=== PATIENT | female | born 1950 | race Caucasian/White ===

== ENCOUNTER 2017-07-19 08:50 | Inpatient (IN) | payer OTHER, MEDICAID, MEDICARE ==
[~2017-07-19] VITALS: Ht 154.9 cm; Wt 71.5 kg
[~2017-07-19 08:50] MED LIST: AMOX500T PO; IBUP800T23 PO; NYST100024 TOP; OXYB5TAB PO; OXYB5TAB33 PO
[2017-07-19 08:52] VITALS: BP 198/86; PULSE 84; RESP 14; TEMP 98.8; O2SAT 100
[2017-07-19] MEDS ORDERED: URSO1TAB5 PO (09:06)
[2017-07-19] MEDS ORDERED: SODIUM CHLOR 0.9% 1000 ML INJ 1,000 ML IV SCH (09:14)
[2017-07-19] MEDS ORDERED: ONDANSETRON HCL 4 MG/2 ML VIAL IVP ONE (09:15)
[2017-07-19] MEDS ORDERED: SODIUM CHLORIDE 0.9% FLUSH 10 ML FLUSH IV FLUSH PRN ×2 (09:15→12:30)
[2017-07-19] MEDS ORDERED: MORPHINE SULFATE 4 MG/ML INJ IV PUSH ONE (09:15)
[2017-07-19 09:18] VITALS: O2SAT 100
--- NOTE | 2017-07-19 09:28 | PD ---
HPI Chief Complaint: Abdominal Pain Time Seen by Provider: 08:58 Travel History International Travel<30 days: No Contact w/Intl Traveler<30days: No Traveled to known affect area: No History of Present Illness HPI The patient is a 67-year-old female who presents emergency department for abdominal pain. The patient is mostly Slovenian-speaking, does understand some French, and the son translating at bedside per her request. The patient notes 3 days of right upper quadrant abdominal pain that radiates to the back and is associated with nausea and vomiting. The pain is worse with eating as well as inspiration and bending over. The patient had an outpatient ultrasound performed yesterday at [facility], does not know the results. She does note nausea and vomiting postprandial. She denies any previous history of abdominal surgeries. She reports no bowel movement for 2 days, denies any dysuria, frequency, or urgency. She denies any fever, chills, or sweats. Symptoms are moderate, exacerbated by eating, and there are no current alleviating factors. PFSH Past Medical History Medical History: Denies Significant Hx Diminished Hearing: No Tetanus Vaccination: > 5 Years Influenza Vaccination: No Past Surgical History Narrative Surgical Multiple orthopedic surgeries including back, knee, shoulder Social History Alcohol Use: No Tobacco Use: No Substance Use: No Allergies-Medications (Allergen,Severity, Reaction): Coded Allergies: No Known Allergies (Unverified Allergy, Unknown, 07/19/17) Reported Meds & Prescriptions Reported Meds & Active Scripts Active Reported Ursodiol 250 Mg Tab 250 Mg PO DAILY Review of Systems Except as stated in HPI: all other systems reviewed are Neg General / Constitutional: No: Fever Cardiovascular: No: Chest Pain or Discomfort Respiratory: No: Shortness of Breath Gastrointestinal: Positive: Nausea, Vomiting, Abdominal Pain, No: Diarrhea Genitourinary: No: Dysuria Physical Exam Narrative GENERAL: Awake, alert, pleasant 67-year-old female who appears her stated age and is in no acute respiratory distress. SKIN: Focused skin assessment warm/dry. HEAD: Atraumatic. Normocephalic. EYES: No injection or drainage. ENT: No nasal bleeding or discharge. Mucous membranes pink and moist. NECK: Trachea midline. No JVD. CARDIOVASCULAR: Regular rate and rhythm. No murmur appreciated. RESPIRATORY: No accessory muscle use. Clear to auscultation. Breath sounds equal bilaterally. GASTROINTESTINAL: Abdomen soft, tender palpation right upper quadrant. Positive Bose's. Negative McBurney's. Back: No CVA tenderness. MUSCULOSKELETAL: No obvious deformities. No clubbing. No cyanosis. No edema. NEUROLOGICAL: Awake and alert. No obvious cranial nerve deficits. Motor grossly within normal limits. Normal speech. PSYCHIATRIC: Appropriate mood and affect; insight and judgment normal. Data Data Last Documented VS Vital Signs Date Time Temp Pulse Resp B/P (MAP) Pulse Ox O2 Delivery O2 Flow Rate FiO2 07/19/17 09:18 100 Room Air 07/19/17 08:52 98.8 84 14 Orders Orders Complete Blood Count With Diff (07/19/17 09:14) Comprehensive Metabolic Panel (07/19/17 09:14) Lipase (07/19/17 09:14) Iv Access Insert/Monitor (07/19/17 09:14) Ecg Monitoring (07/19/17 09:14) Oximetry (07/19/17 09:14) NPO (07/19/17 09:14) Morphine Inj (Morphine Inj) (07/19/17 09:15) Ondansetron Inj (Zofran Inj) (07/19/17 09:15) Sodium Chlor 0.9% 1000 Ml Inj (Ns 1000 M (07/19/17 09:14) Sodium Chloride 0.9% Flush (Ns Flush) (07/19/17 09:15) Morphine Inj (Morphine Inj) (07/19/17 09:30) Piperacil-Tazo 4.5 Gm Premix (Zosyn 4.5 (07/19/17 09:30) Mri Mrcp W/O Contrast (07/19/17 ) Admit Order (Ed Use Only) (07/19/17 10:33) Labs Laboratory Tests Test 07/19/17 09:05 White Blood Count 23.4 TH/MM3 Red Blood Count 4.91 MIL/MM3 Hemoglobin 13.7 GM/DL Hematocrit 41.1 % Mean Corpuscular Volume 83.7 FL Mean Corpuscular Hemoglobin 28.0 PG Mean Corpuscular Hemoglobin Concent 33.4 % Red Cell Distribution Width 13.7 % Platelet Count 228 TH/MM3 Mean Platelet Volume 9.7 FL Neutrophils (%) (Auto) 86.3 % Lymphocytes (%) (Auto) 5.2 % Monocytes (%) (Auto) 8.4 % Eosinophils (%) (Auto) 0.0 % Basophils (%) (Auto) 0.1 % Neutrophils # (Auto) 20.2 TH/MM3 Lymphocytes # (Auto) 1.2 TH/MM3 Monocytes # (Auto) 2.0 TH/MM3 Eosinophils # (Auto) 0.0 TH/MM3 Basophils # (Auto) 0.0 TH/MM3 CBC Comment DIFF FINAL Differential Comment Blood Urea Nitrogen 15 MG/DL Creatinine 0.94 MG/DL Random Glucose 180 MG/DL Total Protein 7.4 GM/DL Albumin 3.2 GM/DL Calcium Level 9.0 MG/DL Alkaline Phosphatase 121 U/L Aspartate Amino Transf (AST/SGOT) 50 U/L Alanine Aminotransferase (ALT/SGPT) 54 U/L Total Bilirubin 2.3 MG/DL Sodium Level 131 MEQ/L Potassium Level 3.5 MEQ/L Chloride Level 96 MEQ/L Carbon Dioxide Level 24.8 MEQ/L Anion Gap 10 MEQ/L Estimat Glomerular Filtration Rate 59 ML/MIN Lipase 105 U/L MDM Medical Decision Making Medical Screen Exam Complete: Yes Emergency Medical Condition: Yes Medical Record Reviewed: Yes Interpretation(s) Patient had an outpatient ultrasound performed yesterday which revealed abnormal gallbladder with wall thickening, sludge, and cholelithiasis. There is a positive sonographic Bose sign as well. The findings are characteristic of acute cholecystitis. The common bile duct is prominent measuring up to 9 mm with no filling defects identified in the visualized duct. No definite pericholecystic fluid. Gallbladder wall thickening measuring up to 7 mm. Laboratory Tests Test 07/19/17 09:05 White Blood Count 23.4 TH/MM3 Red Blood Count 4.91 MIL/MM3 Hemoglobin 13.7 GM/DL Hematocrit 41.1 % Mean Corpuscular Volume 83.7 FL Mean Corpuscular Hemoglobin 28.0 PG Mean Corpuscular Hemoglobin Concent 33.4 % Red Cell Distribution Width 13.7 % Platelet Count 228 TH/MM3 Mean Platelet Volume 9.7 FL Neutrophils (%) (Auto) 86.3 % Lymphocytes (%) (Auto) 5.2 % Monocytes (%) (Auto) 8.4 % Eosinophils (%) (Auto) 0.0 % Basophils (%) (Auto) 0.1 % Neutrophils # (Auto) 20.2 TH/MM3 Lymphocytes # (Auto) 1.2 TH/MM3 Monocytes # (Auto) 2.0 TH/MM3 Eosinophils # (Auto) 0.0 TH/MM3 Basophils # (Auto) 0.0 TH/MM3 CBC Comment DIFF FINAL Differential Comment Blood Urea Nitrogen 15 MG/DL Creatinine 0.94 MG/DL Random Glucose 180 MG/DL Total Protein 7.4 GM/DL Albumin 3.2 GM/DL Calcium Level 9.0 MG/DL Alkaline Phosphatase 121 U/L Aspartate Amino Transf (AST/SGOT) 50 U/L Alanine Aminotransferase (ALT/SGPT) 54 U/L Total Bilirubin 2.3 MG/DL Sodium Level 131 MEQ/L Potassium Level 3.5 MEQ/L Chloride Level 96 MEQ/L Carbon Dioxide Level 24.8 MEQ/L Anion Gap 10 MEQ/L Estimat Glomerular Filtration Rate 59 ML/MIN Lipase 105 U/L Differential Diagnosis Differential diagnosis includes acute cholecystitis, cholelithiasis, choledocholithiasis, pancreatitis, gastritis, peptic ulcer disease, atypical appendicitis, lower lobe pneumonia. Narrative Course IV was established, labs are drawn and sent, and the patient was placed on cardiac telemetry monitoring and continuous pulse oximetry monitoring. Radiology was able to pull up the report from 12 exam imaging revealing the patient has acute cholecystitis with gallbladder wall measuring 7 mm, multiple echogenic gallstones with posterior shadowing, and a positive sonographic Bose sign. Therefore, the patient was administered Zosyn intravenously. Patient was also administered morphine, Zofran, and IV fluids. The patient will Be kept nothing by mouth. Last oral intake was apple juice at 5 AM with subsequent nausea/vomiting. The patient's white count was elevated at 23.5. Bilirubin is elevated at 2.3, LFTs are in the 50s, bile duct was 9 mm. The patient will need MRCP/ERCP prior to cholecystectomy to evaluate for retained biliary stone. Therefore, the on-call medical team was paged for admission. Sepsis Criteria SIRS Criteria (2 or more): WBC > 77491, < 4000 or > 10% bands Physician Communication Physician Communication The on-call medical service was paged for admission. I discussed the patient with Dr. Bazan who agrees with admission. Diagnosis Primary Impression: Acute cholecystitis Admitting Information Admitting Physician Requests: Admit Condition: Stable Jerry Chapin MD Jul 19, 2017 09:28
[2017-07-19] MEDS ORDERED: PIPERACIL-TAZO 4.5 GM PREMIX 100 ML IV ONE ×2 (09:30→13:45)
[2017-07-19] MEDS ORDERED: MORPHINE SULFATE 2 MG/ML INJ IV PUSH ONE (09:30)
[2017-07-19 09:48] LABS: AUTOMATED NEUTROPHIL # 20.2 TH/MM3 (1.8-7.7); BASOPHIL % 0.1 % (0.0-2.0); HEMATOCRIT 41.1 % (35.0-46.0); HEMOGLOBIN 13.7 GM/DL (11.6-15.3); LYMPH % 5.2 % (9.0-44.0); LYMPHOCYTE # 1.2 TH/MM3 (1.0-4.8); MEAN CELL VOLUME 83.7 FL (80.0-100.0); MEAN CORPUSCULAR HGB CONC 33.4 % (32.0-36.0); MEAN PLATELET VOLUME 9.7 FL (7.0-11.0); MONO % 8.4 % (0.0-8.0); NEUT % 86.3 % (16.0-70.0); PLATELET COUNT 228 TH/MM3 (150-450); RED BLOOD COUNT 4.91 MIL/MM3 (4.00-5.30); RED CELL DISTRIBUTION WIDTH 13.7 % (11.6-17.2); WHITE BLOOD COUNT 23.4 TH/MM3 (4.0-11.0)
[2017-07-19 10:03] LABS: ALBUMIN 3.2 GM/DL (3.4-5.0); AST (GOT) 50 U/L (15-37); BICARBONATE 24.8 MEQ/L (21.0-32.0); BLOOD UREA NITROGEN 15 MG/DL (7-18); CHLORIDE 96 MEQ/L (98-107); CREATININE 0.94 MG/DL (0.50-1.00); GLOMERULAR FILTRATION RATE 59 ML/MIN (>89); GLUCOSE,RANDOM 180 MG/DL (74-106); LIPASE 105 U/L (73-393); SODIUM (NA) 131 MEQ/L (136-145)
[2017-07-19 10:04] LABS: ALT (GPT) 54 U/L (10-53)
[2017-07-19 10:06] LABS: ALKALINE PHOSPHATASE 121 U/L (45-117); TOTAL BILIRUBIN ADULT 2.3 MG/DL (0.2-1.0); TOTAL PROTEIN 7.4 GM/DL (6.4-8.2)
--- NOTE | 2017-07-19 11:34 | RADRPT ---
EXAM DATE/TIME: 07/19/2017 10:55 [facility] COMPARISON: US ABDOMEN - COMPLETE, July 01, 2014, 9:02. INDICATIONS : Abdominal pain. RUQ pain. MEDICAL HISTORY : None. SURGICAL HISTORY : Fusion, lumbar. Total knee replacement, left. ENCOUNTER: Initial ACUITY: 1 day PAIN SCORE: 5/10 LOCATION: Right upper quadrant TECHNIQUE: Multiplanar, multisequence magnetic resonance imaging of the abdomen was performed. High-resolution 3D dataset was utilized to reconstruct maximum-intensity projection (MIP) images. FINDINGS: INTRAHEPATIC BILE DUCTS: Within normal limits. No significant anatomical variant is present. EXTRAHEPATIC BILE DUCTS: The common bile duct measures 9 mm No stone or filling defect is identified. GALLBLADDER: The gallbladder is distended. Gallbladder wall appears thickened. Multiple gallstones are seen. There is edema and inflammatory change surrounding the gallbladder in the right upper quadrant. Fluid is s een around the liver. LIVER: Normal size and signal intensity. No concerning liver lesion is identified on this non-contrast exam. PANCREAS: The main pancreatic duct is normal in size. There is no significant anatomical variant. Signal inte nsity is within normal limits. No mass is visualized on this non-contrast exam. OTHER: The remaining visualized structures demonstrate no acute abnormality on this non-contrast exam. CONCLUSION: Cholelithiasis with a distended gallbladder, thickened gallbladder wall, and surrounding inflammatory change thought to be secondary to cholecystitis. Yonis Shaffer MD on July 19, 2017 at 11:29 Board Certified Radiologist. This report was verified electronically.
[2017-07-19] MEDS ORDERED: LIDOCAINE HCL 1% PF 5 ML SYRINGE OTHER ONE (12:00)
[2017-07-19] MEDS ORDERED: ONDANSETRON HCL 4 MG/2 ML VIAL IV ONE (12:00)
[2017-07-19] MEDS ORDERED: PROPOFOL 200 MG/20 ML AMP IV ONE (12:00)
[2017-07-19] MEDS ORDERED: SODIUM CHLOR 0.9% 1000 ML INJ 1,000 ML IV ONE (12:00)
[2017-07-19] MEDS ORDERED: GLYCOPYRROLATE 1 MG/5 ML SYRINGE IV PUSH ONE (12:00)
[2017-07-19] MEDS ORDERED: PHENYLEPH/NS 1000 MCG/10 ML SYR IV ONE (12:00)
[2017-07-19] MEDS ORDERED: ROCURONIUM INJ 50 MG/5 ML SYRINGE IV PUSH ONE (12:00)
[2017-07-19] MEDS ORDERED: DEXAMETHASONE SOD PHOS 4 MG/ML VIAL IV ONE (12:00)
[2017-07-19] MEDS ORDERED: NEOSTIGMINE 5 MG/5 ML SYRINGE IV PUSH ONE (12:00)
[2017-07-19] MEDS ORDERED: SUCCINYLCHOLINE CHLORIDE 100 MG/5 ML SYRINGE IV PUSH ONE (12:00)
--- NOTE | 2017-07-19 12:09 | HHI.HP ---
[facility] Service Family Medicine Primary Care Physician Unknown Admission Diagnosis acute cholecystitis, rule out choledocholithiasis Diagnoses: International Travel<30 Days: No Contact w/Intl Traveler<30days: No Known Affected Area: No History of Present Illness Patient is a 67-year-old male with past history of gallstones presents today with abdominal pain. Patient has been speaking, communicated with patient via [employer], used quality tech Juan [phone] She reports abdominal pain started approximately 3 days ago, is in her upper stomach, radiates to her back, is described as a crampy stabbing pain, was associated with nausea, vomiting. She notes a past history of gallstones approximately year ago, this feels similar to that time. She states around that time "they removed bile" however states she did not have surgery. She also reports decreased food intake, shortness of breath, chest pain, headache. No pain in her left arm or jaw. She states a few days ago she had a urinalysis which demonstrated blood, bacteria in her urine, burning when she urinates in the past few days. No fever, chills, lightheadedness, dizziness. (Erick Nagel MD R1) Review of Systems Constitutional: COMPLAINS OF: Weight loss, Dizziness, Change in appetite ( decreased), DENIES: Fever, Weight gain (3 pounds), Chills Endocrine: DENIES: Polydipsia, Polyuria Eyes: DENIES: Blurred vision, Diplopia, Eye inflammation, Eye pain, Vision loss , Photosensitivity, Double Vision Ears, nose, mouth, throat: DENIES: Tinnitus, Hearing loss, Nasal discharge, Throat pain, Hoarseness, Ear Pain, Running Nose, Epistaxis Respiratory: DENIES: Apneas, Cough, Wheezing, Hemoptysis, Sputum production, Shortness of breath Cardiovascular: COMPLAINS OF: Chest pain, DENIES: Palpitations, Syncope, Dyspnea on Exertion, Lower Extremity Edema Gastrointestinal: COMPLAINS OF: Abdominal pain, Constipation, Nausea, Vomiting , DENIES: Black stools, Bloody stools, Diarrhea, Difficulty Swallowing Genitourinary: COMPLAINS OF: Hematuria, Dysuria Musculoskeletal: COMPLAINS OF: Back pain, DENIES: Joint pain, Muscle aches, Stiffness, Neck pain Integumentary: DENIES: Pruritus, Rash Hematologic/lymphatic: DENIES: Bruising, Lymphadenopathy Immunologic/allergic: DENIES: Eczema, Urticaria Neurologic: COMPLAINS OF: Abnormal gait (hurts to stand due to abdominal pain) , DENIES: Headache, Localized weakness, Paresthesias, Seizures Psychiatric: COMPLAINS OF: Anxiety, DENIES: Confusion, Depression, Hallucinations (Erick Nagel MD R1) Past Family Social History Past Medical History Osteoporosis Gallstones Past Surgical History No surgeries (Erick Nagel MD R1) Allergies: Coded Allergies: No Known Allergies (Unverified Allergy, Unknown, 07/19/17) Family History Father: at 80 from "malpractice," hernia Mother: Diabetes, ope heart surgery Son: healthy Social History EtOH: occasional Tobacco: never Drugs: none (Erick Nagel MD R1) Physical Exam Vital Signs Vital Signs Date Time Temp Pulse Resp B/P (MAP) Pulse Ox O2 Delivery O2 Flow Rate FiO2 07/19/17 09:18 100 Room Air 07/19/17 08:52 98.8 84 14 198/86 (123) 100 Physical Exam GENERAL: This is a well-nourished, well-developed patient, curled up in bed due to pain SKIN: No rashes, ecchymoses or lesions. Cool and dry. HEAD: Atraumatic. Normocephalic. No temporal or scalp tenderness. EYES: Pupils equal round and reactive. Extraocular motions intact. No scleral icterus. No injection or drainage. ENT: Nose without bleeding, purulent drainage or septal hematoma. Throat without erythema, tonsillar hypertrophy or exudate. Uvula midline. Airway patent. NECK: Trachea midline. No JVD or lymphadenopathy. Supple, nontender, no meningeal signs. CARDIOVASCULAR: Regular rate and rhythm without murmurs, gallops, or rubs. RESPIRATORY: Clear to auscultation. Breath sounds equal bilaterally. No wheezes , rales, or rhonchi. GASTROINTESTINAL: Abdomen soft, tender to palpation. Positive Bose sign. Bowel sounds present, no rebound. No hepato-splenomegaly, or palpable masses. No guarding. MUSCULOSKELETAL: Extremities without clubbing, cyanosis, or edema. No joint tenderness, effusion, or edema noted. No calf tenderness. Negative Homans sign bilaterally. NEUROLOGICAL: Awake and alert. Motor and sensory grossly within normal limits. Normal speech. Laboratory Laboratory Tests Test 07/19/17 09:05 White Blood Count 23.4 Red Blood Count 4.91 Hemoglobin 13.7 Hematocrit 41.1 Mean Corpuscular Volume 83.7 Mean Corpuscular Hemoglobin 28.0 Mean Corpuscular Hemoglobin Concent 33.4 Red Cell Distribution Width 13.7 Platelet Count 228 Mean Platelet Volume 9.7 Neutrophils (%) (Auto) 86.3 Lymphocytes (%) (Auto) 5.2 Monocytes (%) (Auto) 8.4 Eosinophils (%) (Auto) 0.0 Basophils (%) (Auto) 0.1 Neutrophils # (Auto) 20.2 Lymphocytes # (Auto) 1.2 Monocytes # (Auto) 2.0 Eosinophils # (Auto) 0.0 Basophils # (Auto) 0.0 CBC Comment DIFF FINAL Differential Comment Blood Urea Nitrogen 15 Creatinine 0.94 Random Glucose 180 Total Protein 7.4 Albumin 3.2 Calcium Level 9.0 Alkaline Phosphatase 121 Aspartate Amino Transf (AST/SGOT) 50 Alanine Aminotransferase (ALT/SGPT) 54 Total Bilirubin 2.3 Sodium Level 131 Potassium Level 3.5 Chloride Level 96 Carbon Dioxide Level 24.8 Anion Gap 10 Estimat Glomerular Filtration Rate 59 Lipase 105 (Erick Nagel MD R1) Result Diagram: 07/19/17 0905 07/19/17 0905 Imaging Last 24 hours Impressions Chest X-Ray 07/19/17 1218 Signed Impressions: Service Date/Time: Wednesday, July 19, 2017 12:25 - CONCLUSION: Mild suspected atelectasis or consolidation at the right base. Yonis Shaffer MD Cholangiopancreatography MRI 07/19/17 0000 Signed Impressions: Service Date/Time: Wednesday, July 19, 2017 10:55 - CONCLUSION: Cholelithiasis with a distended gallbladder, thickened gallbladder wall, and surrounding inflammatory change thought to be secondary to cholecystitis. Yonis Shaffer MD (Erick Nagel MD R1) Caprini VTE Risk Assessment Caprini VTE Risk Assessment: Mod/High Risk (score >= 2) Caprini Risk Assessment Model Point Value = 1 Point Value = 2 Point Value = 3 Point Value = 5 Age 41-60 Minor surgery BMI > 25 kg/m2 Swollen legs Varicose veins or History of unexplained or recurrent spontaneous Oral contraceptives or hormone replacement Sepsis (< 1 month) Serious lung disease, including pneumonia (< 1 month) Abnormal pulmonary function Acute myocardial infarction Congestive heart failure (< 1 month) History of inflammatory bowel disease Medical patient at bed rest Age 61-74 Arthroscopic surgery Major open surgery (> 45 min) Laparoscopic surgery (> 45 min) Malignancy Confined to bed (> 72 hours) Immobilizing plaster cast Central venous access Age >= 75 History of VTE Family history of VTE Factor V Leiden Prothrombin [id number] Lupus anticoagulant Anticardiolipin antibodies Elevated serum homocysteine Heparin-induced thrombocytopenia Other congenital or acquired thrombophilia Stroke (< 1 month) Elective arthroplasty Hip, pelvis, or leg fracture Acute spinal cord injury (< 1 month) Prophylaxis Regimen Total Risk Factor Score Risk Level Prophylaxis Regimen 0-1 Low Early ambulation 2 Moderate Order ONE of the following: *Sequential Compression Device (SCD) *Heparin 5000 units SQ BID 3-4 Higher Order ONE of the following medications: *Heparin 5000 units SQ TID *Enoxaparin/Lovenox 40 mg SQ daily (WT < 150 kg, CrCl > 30 mL/min) *Enoxaparin/Lovenox 30 mg SQ daily (WT < 150 kg, CrCl > 10-29 mL/min) *Enoxaparin/Lovenox 30 mg SQ BID (WT < 150 kg, CrCl > 30 mL/min) AND/OR *Sequential Compression Device (SCD) 5 or more Highest Order ONE of the following medications: *Heparin 5000 units SQ TID (Preferred with Epidurals) *Enoxaparin/Lovenox 40 mg SQ daily (WT < 150 kg, CrCl > 30 mL/min) *Enoxaparin/Lovenox 30 mg SQ daily (WT < 150 kg, CrCl > 10-29 mL/min) *Enoxaparin/Lovenox 30 mg SQ BID (WT < 150 kg, CrCl > 30 mL/min) AND *Sequential Compression Device (SCD) (Erick Nagel MD R1) Assessment and Plan Assessment and Plan 67-year-old female with history of gallstones presents with calculus cholecystitis. Patient also complains of recent hematuria and dysuria. Possible UTI. Patient also complains of chest pain, shortness of breath, rule out ACS. (Erick Nagel MD R1) Problem List: (1) Calculus of gallbladder with cholecystitis ICD Codes: K80.10 - Calculus of gallbladder with chronic cholecystitis without obstruction Plan: Patient with history of cholelithiasis, currently with abdominal pain, Bose's sign, cholelithiasis with inflammatory changes on MRCP. Currently has cholecystitis. -Surgery consulted, appreciate recommendations -Morphine 2 mg when necessary every 4 hours -MRCP as stated above -Nothing by mouth due to likely surgery (2) Chest pain ICD Codes: R07.9 - Chest pain, unspecified Plan: Patient states that she has chest pain, shortness of breath, no left arm or jaw pain. Pain possibly related to cholecystitis. -Follow up EKG -Follow-up chest x-ray -Trend troponins (3) UTI (urinary tract infection) ICD Codes: N39.0 - Urinary tract infection, site not specified Plan: Patient reports recent dysuria and hematuria, states she may have recently had a UA positive for these. Has not been on antibiotics. -Follow up UA -Antibiotics pending UA results (4) Hypertension ICD Codes: I10 - Essential (primary) hypertension Plan: Patient presented on admission with a blood pressure 198/86, repeat blood pressure 1626/76. Denies past history of hypertension. Likely secondary to pain from cholecystitis. -Monitor blood pressure -Labetalol 10 mg as needed every 6 hours for systolic> 160 or diastolic> 90 -Pain control as above (5) FEN Plan: Fluids: -Maintenance fluids 110 mL/h Electrolytes -Monitor replete as needed Nutrition -Nothing by mouth, likely surgery soon (Erick Nagel MD R1) Problem List: (1) Calculus of gallbladder with cholecystitis ICD Codes: K80.10 - Calculus of gallbladder with chronic cholecystitis without obstruction Plan: Patient with history of cholelithiasis, currently with abdominal pain, Bose's sign, cholelithiasis with inflammatory changes on MRCP. Currently has cholecystitis. -Surgery consulted, appreciate recommendations -Morphine 2 mg when necessary every 4 hours -MRCP as stated above -Nothing by mouth due to likely surgery (2) Chest pain ICD Codes: R07.9 - Chest pain, unspecified Plan: Patient states that she has chest pain, shortness of breath, no left arm or jaw pain. Pain possibly related to cholecystitis. -Follow up EKG -Follow-up chest x-ray -Trend troponins (3) UTI (urinary tract infection) ICD Codes: N39.0 - Urinary tract infection, site not specified Plan: Patient reports recent dysuria and hematuria, states she may have recently had a UA positive for these. Has not been on antibiotics. -Follow up UA -Antibiotics pending UA results (4) Hypertension ICD Codes: I10 - Essential (primary) hypertension Plan: Patient presented on admission with a blood pressure 198/86, repeat blood pressure 1626/76. Denies past history of hypertension. Likely secondary to pain from cholecystitis. -Monitor blood pressure -Labetalol 10 mg as needed every 6 hours for systolic> 160 or diastolic> 90 -Pain control as above (5) FEN Plan: Fluids: -Maintenance fluids 110 mL/h Electrolytes -Monitor replete as needed Nutrition -Nothing by mouth, likely surgery soon See the residents documentation for details. I saw and evaluated the patient regarding the conley portions of this evaluation and agree with the residents findings and plans as written. I have reviewed the patients past medical/surgical and social histories and updated as appropriate. Parts of this note were created using [employer] voice recognition software program. While efforts were made to correct any mistakes made by this software, some mistakes, errors, and omissions may remain in the final note that were not caught when the note was originally created. Plan of care was discussed and agreed upon with the patient as specifically documented in the above note. An opportunity to ask questions with explanation was provided. Patient voiced understanding on all information reviewed and discussed. (Carlos A Valenzuela MD) Physician Certification 2 Midnight Certification Type: Admission for Inpatient Services Order for Inpatient Services The services are ordered in accordance with Medicare regulations or non- Medicare payer requirements, as applicable. In the case of services not specified as inpatient-only, they are appropriately provided as inpatient services in accordance with the 2-midnight benchmark. Estimated LOS (days): 2 2 days is the estimated time the patient will need to remain in the hospital, assuming treatment plan goals are met and no additional complications. Post-Hospital Plan: Home (Erick Nagel MD R1) Erick Nagel MD R1 Jul 19, 2017 12:09 Carlos A Valenzuela MD Jul 20, 2017 12:58
[2017-07-19] MEDS ORDERED: LABETALOL HCL 100 MG/20 ML VIAL IV PUSH PRN (12:15)
[2017-07-19] MEDS: SODIUM CHLOR 0.9% 1000 ML INJ 1,000 ML IV SCH ×2 (12:18→19:19)
[2017-07-19] MEDS ORDERED: MAGNESIUM HYDROXIDE SUSP 30 ML CUP PO PRN (12:30)
[2017-07-19] MEDS ORDERED: LACTULOSE SYRUP 20 GM/30 ML CUP PO PRN (12:30)
[2017-07-19] MEDS ORDERED: ACETAMINOPHEN 325 MG TAB PO PRN (12:30)
[2017-07-19] MEDS ORDERED: SENNOSIDES 8.6 MG TAB PO PRN (12:30)
[2017-07-19] MEDS ORDERED: NALOXONE HCL 0.4 MG/ML AMP IV PUSH PRN (12:30)
[2017-07-19] MEDS ORDERED: BISACODYL 10 MG SUPP RECTAL PRN (12:30)
--- NOTE | 2017-07-19 13:09 | RADRPT ---
EXAM DATE/TIME: 07/19/2017 12:25 [facility] COMPARISON: No previous studies available for comparison. INDICATIONS : Gallbladder pain radiates to chest area. MEDICAL HISTORY : None. SURGICAL HISTORY : Fusion, lumbar. Total knee replacement, left. ENCOUNTER: Initial ACUITY: 3 days PAIN SCORE: 5/10 LOCATION: Bilateral chest FINDINGS: The heart size is normal. There is mild increased density at the right base. There some elevation of the right hemidiaphragm. The left lung is clear. Surgical hardware is seen at the proximal right [place]. CONCLUSION: Mild suspected atelectasis or consolidation at the right base. Yonis Shaffer MD on July 19, 2017 at 13:07 Board Certified Radiologist. This report was verified electronically.
[2017-07-19 14:16] VITALS: BP 166/76; PULSE 88; RESP 20; TEMP 99.3; O2SAT 97
[2017-07-19] MEDS ORDERED: FAMOTIDINE 20 MG/2 ML VIAL ONE (14:35)
[2017-07-19] MEDS ORDERED: BUPIVACAINE/EPINEPHRINE 0.25% PF 10 ML VIAL INFIL ONE (15:25)
--- NOTE | 2017-07-19 15:42 | MB ---
cc: MILTON MADERA M.D. DATE OF CONSULTATION: 07/19/2017. REASON FOR CONSULTATION: Cholecystitis. HISTORY OF PRESENT ILLNESS: This is a very pleasant 67-year-old woman who apparently has been experiencing for at least several weeks recurrent episodes of upper abdominal pain that became exacerbated three days ago. She had associated nausea with vomiting and diarrhea. She went to see her primary care doctor, and by report from Dr. Chapin in the emergency department, had an ultrasound at [facility] yesterday. This demonstrated findings consistent with acute cholecystitis with stones and gallbladder wall thickening. She was given antibiotics and pain medications but had continued severe pain and her son brought her to the emergency department. She had elevated the liver function tests and an MRCP was done which showed findings consistent with acute calculous cholecystitis. She did have some mildly elevated liver function tests but did not have a filling defect in the common bile duct. Surgical opinion was requested. ALLERGIES: The patient has no known drug allergies. PAST MEDICAL HISTORY: Her past medical history is significant for: 1. Osteoporosis and she takes a medication for this. 2. She has also had orthopedic surgeries: Her right knee, her left shoulder and her back in the past. She has never had any problems with anesthesia associated with the surgeries. FAMILY HISTORY: She has a family history of diabetes in her mother who also had open heart surgery, and her father had a hernia. Her son, although overweight, is otherwise healthy. SOCIAL HISTORY: She is a social alcohol user. She denies tobacco or drug abuse. She has no known HIV or hepatitis risk factors. REVIEW OF SYSTEMS: She has never had bleeding problems with her previous surgeries. She denies primary lung or heart disorders. No history of liver or kidney disease. No strokes or seizures. She has never been on blood thinning medications. PHYSICAL EXAMINATION: GENERAL: The physical examination demonstrates a middle-aged woman in no acute distress. She does complain of abdominal pain. VITAL SIGNS: Her temperature is 98.8, her pulse is 84, respiratory rate 14, blood pressure is 198/86, 02 saturation is 100% on room air. HEAD, EYES, EARS, NOSE, THROAT: Normocephalic and atraumatic. Her pupils are 2, round and sluggishly reactive to light. Her sclerae are nonicteric. Her oropharynx is clear without mucosal lesions. There are moist mucous membranes. Her dentition is intact. NECK: Her neck is supple without adenopathy. She has a midline trachea. No jugular venous distention. No palpable thyromegaly. No carotid bruits. LUNGS: Her lungs are clear and equal anteriorly bilaterally. HEART: Her heart sounds are regular without murmurs, rubs or gallops. BREASTS, GENITALIA AND RECTAL: Deferred. ABDOMEN: Her abdomen is soft and nondistended. It is tender to palpation especially in the right upper quadrant. She has a few normal bowel sounds. No abdominal bruits. She has a small incarcerated umbilical hernia. There are no overlying skin changes. EXTREMITIES: No cyanosis, clubbing or edema. She has equal bilateral radial and dorsalis pedis pulses. She has tenderness to palpation of her right leg that her son says is worse when the weather is cold. NEUROLOGIC: She is awake and alert and oriented. She expresses complete understanding of the discussion and her son interprets for her as needed. LABORATORY DATA: White count of 23.4 with 86% neutrophils. Her hemoglobin is 13.7. Her platelet count is 228,000. Potassium is 3.5. Creatinine is 0.94. Sodium and chloride are low at 131 and 96. Her total bilirubin is 2.3. Alkaline phosphatase is 121. AST 50. ALT 54. Albumin 3.2. Lipase 105. RADIOLOGICAL STUDIES: As reported above, a chest x-ray shows mild suspected atelectasis or consolidation at the right base. The MRCP shows cholelithiasis, distended gallbladder, thickened gallbladder wall, surrounding inflammatory change thought to be related to cholecystitis. The official report indicates the intrahepatic bile ducts are within normal limits. The extrahepatic bile ducts show a 9 mm diameter without a stone or filling defect identified. ASSESSMENT: This is a very pleasant 67-year-old woman with acute calculous cholecystitis. Liver function test abnormalities may be related to the inflammatory condition. The MRCP suggests no biliary ductal filling defect; however, if the cystic duct is easily identifiable and the intraoperative cholangiogram can safely be performed, this will be done. I discussed in detail with the patient and her son the procedure of laparoscopic cholecystectomy, the risks including bleeding, infection, injury to liver, bile duct or bowel, possible open surgery, DVT, pulmonary embolus and expectations for recovery. They understand and wish to proceed. The patient received preoperative antibiotic at 9:00 or 9:30 this morning, and I have ordered a second dose to be given in the operating room. Again, the patient and her son understand and wish to proceed. MD REID Desouza/COLLIN /1:35 PM /3:13 PM SEGUNDO
--- NOTE | 2017-07-19 16:34 | PD.OP ---
Operative Report Date of Surgery: Jul 19, 2017 Preoperative Diagnosis: acute cholecystitis Postoperative Diagnosis: same, gangrenous Procedure: lap cholecystectomy Anesthesia: general Surgeon: Rome Winters Millwright(s): staff Operation and Findings: severe inflammatory changes, gangrenous cholecystitis. GB to pathology. EBL 250 ml. Rome Winters MD Jul 19, 2017 16:33
[2017-07-19] MEDS ORDERED: MIDAZOLAM HCL 2 MG/2 ML VIAL ONE (16:38)
[2017-07-19] MEDS ORDERED: MORPHINE SULFATE 2 MG/ML INJ IM PRN (16:45)
[2017-07-19] MEDS ORDERED: Post-op Orders (for Pharmacy) XX ONE (16:45)
[2017-07-19] MEDS ORDERED: ONDANSETRON HCL 4 MG/2 ML VIAL IV PUSH PRN (16:45)
[2017-07-19] MEDS ORDERED: ACETAMINOPHEN 1000 MG/100 ML 100 ML IV ONE (16:45)
[2017-07-19] MEDS ORDERED: ACETAMINOPHEN/HYDROcodone 325 MG/5 MG TAB PO PRN (16:45)
[2017-07-19] MEDS ORDERED: DO NOT ADM ANY ANTICOAGULANT DRUGS PRN (17:00)
[2017-07-19] MEDS ORDERED: *morphine SULFATE 4 MG/ML PERIprocedure ONLY ONE (17:12)
[2017-07-19] MEDS: LACTATED RINGER'S 1000 ML INJ 1,000 ML IV SCH ×2 (17:15→21:44)
[2017-07-19 17:43] VITALS: BP 128/63; PULSE 86; RESP 20; TEMP 97.9; O2SAT 97
[2017-07-19 20:00] VITALS: BP 102/58; PULSE 77; RESP 17; TEMP 97.4; O2SAT 98
--- NOTE | 2017-07-19 20:58 | MP ---
cc: MILTON MADERA M.D. DATE OF SURGERY: 07/19/2017. PREOPERATIVE DIAGNOSIS: 1. Acute calculous cholecystitis. 2. Incarcerated umbilical hernia. POSTOPERATIVE DIAGNOSIS: 1. Acute calculous cholecystitis with gangrenous changes. 2. Incarcerated umbilical hernia. OPERATIVE PROCEDURE PERFORMED: 1. Laparoscopic cholecystectomy. 2. Repair of incarcerated umbilical hernia. SURGEON: Milton Madera M.D. ANESTHESIA: General. INDICATIONS FOR THE PROCEDURE: This is a very pleasant 67-year-old woman who has had severe right upper quadrant pain, nausea and emesis. Imaging demonstrated findings suggestive of acute calculous cholecystitis. She failed outpatient antibiotic and pain medication therapy. INTRAOPERATIVE FINDINGS: Severe gangrenous cholecystitis. Gallbladder removed and sent to pathology. ESTIMATED BLOOD LOSS: Estimated blood loss 250 mL. DESCRIPTION OF THE PROCEDURE IN DETAIL: The patient was identified as Evie Wilson and taken to the operating room and placed in the supine position. Sequential compression devices were placed on bilateral lower extremities. Following induction of adequate general endotracheal anesthesia, the patient's abdomen was prepped and draped in the usual sterile fashion with Betadine. A time-out procedure was performed. Following completion of the time-out procedure to everyone's satisfaction within the room, local anesthetic was placed at each incision site. An infraumbilical transverse incision was carried out with a scalpel. The herniated preperitoneal fatty tissue was released from surrounding subcutaneous fat. Its opening in the fascia was extended and redundant fatty tissue amputated with a harmonic scalpel and discarded. The fascial defect was extended inferiorly. The surgeon's finger was placed in the peritoneal cavity. The [employer] balloon Singh trocar was placed in the peritoneal cavity, its balloon inflated to C02 insufflation to a level of 15 mmHg ensued. The patient was placed in a steep reverse Trendelenburg position and three upper abdominal 5 mm trocars were placed in the peritoneal cavity under direct laparoscopic view after incision in the skin with a scalpel. An inflammatory rind of the omentum was encasing a gangrenous gallbladder. It was sequentially released using blunt dissection and the suction irrigation device. The gallbladder was decompressed through an opening in its apex using the suction drink mixer of the harmonic scalpel and a 0-PDS Endoloop was placed to close the defect. The gallbladder then able to be manipulated. The inflammatory adhesions were taken down from the undersurface using tension and counter-tension using the Loida Flex liver retractor and the suction irrigation device. The gallbladder was then removed from the gallbladder fossa in a dome down technique using harmonic scalpel and suction dissection. This enabled identification of cystic arterial branch, which was divided with the harmonic scalpel. The cystic duct was inflamed and involved in a bunch of inflammatory fatty tissue. This was carefully taken down in the gallbladder at the junction with the cystic duct and it was ligated with 0-PDS Endoloop. Proximal to this, the gallbladder was divided using the harmonic scalpel and the gallbladder placed into an Endo retriever bag and removed from the infraumbilical fascial port incision site which was extended inferiorly to allow for removal of the gallbladder which was then passed off field for pathologic evaluation. The right upper quadrant was copiously irrigated with saline. The cystic duct ligature remained intact. The cystic arterial stump was hemostatic. The gallbladder fossa itself had a couple of small areas a gentle ooze. Once all the bloody drainage was suctioned out and irrigated and suctioned out repeatedly, the gallbladder fossa was treated with Surgicel powder. This effectively created hemostasis. Due to the severe gangrenous nature of the gallbladder, a 10-Tristanian fluted drain was placed through the right lateral 5 mm trocar into the subhepatic space and held in position with a 3-0 nylon drain stitch. The abdomen was desufflated after trocars were removed under direct visualization. There was no evidence of bleeding from trocar sites. The abdomen was desufflated through the infraumbilical port which was then removed. The fascial incision was closed with multiple interrupted 0 Vicryl sutures placed both in a simple and [id number] manner. This approximated not only the additional incision but also a primary umbilical hernia defect. Deep dermis and subcutaneous tissue was approximated with interrupted inverted 2-0 Vicryl sutures and skin incisions were all approximated with 4-0 Monocryl subcuticular sutures after it had been irrigated copiously with saline. Mastisol and half-inch brown Steri-Strips, dry gauze and a dressing were placed around the drain site and over the umbilicus. The patient tolerated the procedures without apparent complication. Sponge, needle and instrument counts were correct at the end of the case. MD REID Desouza/COLLIN /4:15 PM /8:33 PM
[2017-07-19] MEDS: DOCUSATE SODIUM 50 MG/SENNA 8.6 MG TAB PO SCH (21:00)
[2017-07-19] MEDS: SODIUM CHLORIDE 0.9% FLUSH 10 ML FLUSH IV FLUSH SCH (21:45)
--- NOTE | 2017-07-19 22:03 | EKG ---
Date Performed: 07/19/2017 Time Performed: 14:34:05 PTAGE: 67 years EKG: Sinus rhythm NORMAL ECG NO PREVIOUS TRACING DOCTOR: George Wilkinson Interpretating Date/Time 07/19/2017 22:02:28
[2017-07-19 22:38] LABS: AMYLASE 27 U/L (25-115); LIPASE 109 U/L (73-393)
[2017-07-19 22:41] LABS: TROPONIN I LESS THAN 0.02 NG/ML (0.02-0.05)
[2017-07-20] VITALS (7 sets, daily range): BP systolic 107–121; BP diastolic 55–74; PULSE 66–82; RESP 16–20; TEMP 97.2–98.5; O2SAT 93–95
[2017-07-20] MEDS: ACETAMINOPHEN/HYDROcodone 325 MG/5 MG TAB PO PRN ×3 (03:42→14:02)
[2017-07-20 04:10] LABS: BACTERIA, URINE RARE /hpf; BILIRUBIN, URINE NEG (NEG); BLOOD, URINE TRACE (NEG); GLUCOSE,URINE 1000 mg/dL (NEG); KETONE, URINE NEG (NEG); NITRITE,URINE NEG (NEG); SQUAMOUS EPITHELIAL CELL URINE 4 /hpf (0-5); URINE COLOR YELLOW (YELLW/STRAW); URINE LEUKOCYTE ESTERASE SMALL (NEG)
[2017-07-20] MEDS: SODIUM CHLOR 0.9% 1000 ML INJ 1,000 ML IV SCH (05:07)
[2017-07-20 07:30] LABS: HEMATOCRIT 32.2 % (35.0-46.0); HEMOGLOBIN 10.7 GM/DL (11.6-15.3); MEAN CELL VOLUME 85.1 FL (80.0-100.0); MEAN CORPUSCULAR HEMOGLOBIN 28.5 PG (27.0-34.0); MEAN CORPUSCULAR HGB CONC 33.4 % (32.0-36.0); MEAN PLATELET VOLUME 9.8 FL (7.0-11.0); PLATELET COUNT 201 TH/MM3 (150-450); RED BLOOD COUNT 3.78 MIL/MM3 (4.00-5.30)
[2017-07-20 07:57] LABS: BICARBONATE 24.8 MEQ/L (21.0-32.0); CREATININE 0.8 MG/DL (0.50-1.00)
[2017-07-20] MEDS: DOCUSATE SODIUM 50 MG/SENNA 8.6 MG TAB PO SCH ×2 (09:00→20:40)
[2017-07-20] MEDS: SODIUM CHLORIDE 0.9% FLUSH 10 ML FLUSH IV FLUSH SCH ×2 (09:00→20:40)
--- NOTE | 2017-07-20 10:20 | HHI.PR ---
Subjective Subjective Notes feels better today, sore, tolerating some po Objective Vitals/I&O Vital Signs Date Time Temp Pulse Resp B/P (MAP) Pulse Ox O2 Delivery O2 Flow Rate FiO2 07/20/17 08:07 98.5 69 20 118/58 (78) 94 07/19/17 20:00 Room Air 07/19/17 18:37 2.00 Labs Laboratory Tests Test 07/20/17 03:36 07/20/17 06:25 Urine Color YELLOW Urine Turbidity CLEAR Urine pH 6.0 Urine Specific [place] 1.015 Urine Protein TRACE Urine Glucose (UA) 1000 Urine Ketones NEG Urine Occult Blood TRACE Urine Nitrite NEG Urine Bilirubin NEG Urine Urobilinogen LESS THAN 2.0 Urine Leukocyte Esterase SMALL Urine RBC 6 Urine WBC 4 Urine Squamous Epithelial Cells 4 Urine Bacteria RARE Microscopic Urinalysis Comment CULT NOT INDICATED White Blood Count 20.0 Red Blood Count 3.78 Hemoglobin 10.7 Hematocrit 32.2 Mean Corpuscular Volume 85.1 Mean Corpuscular Hemoglobin 28.5 Mean Corpuscular Hemoglobin Concent 33.4 Red Cell Distribution Width 14.0 Platelet Count 201 Mean Platelet Volume 9.8 Blood Urea Nitrogen 15 Creatinine 0.80 Random Glucose 136 Calcium Level 8.0 Sodium Level 136 Potassium Level 4.0 Chloride Level 104 Carbon Dioxide Level 24.8 Anion Gap 7 Estimat Glomerular Filtration Rate 72 Abdomen: Non-distended, Post-op tenderness, BS normal Narrative Exam jessica with serosanginous output, no bile. Wound Wound : Wound Location: Abdomen Appearance: Clean & Dry Dressing: Dry A/P Assessment and Plan POD1 lap silvestre doing well supportive care FU with Dr. Winters this week in office for JESSICA removal Lavon Nelson MD Jul 20, 2017 10:20
--- NOTE | 2017-07-20 13:39 | HHI.HP ---
HPI Service Family Medicine Primary Care Physician Unknown Admission Diagnosis acute cholecystitis, rule out choledocholithiasis Diagnoses: (1) Calculus of gallbladder with cholecystitis (2) Chest pain (3) UTI (urinary tract infection) (4) Hypertension (5) FEN International Travel<30 Days: No Contact w/Intl Traveler<30days: No Known Affected Area: No History of Present Illness Patient feeling significantly better today. She was seen at bedside. She underwent surgical intervention yesterday. She is accompanied by her son at bedside. We are able to communicate today without the use of Stratis. We did do Stratis for the initial admission, for which is also present. She feels much better today. She has a drain tube placed. Which seems to be draining some blood tinged fluid. Patient's wound seemed to be healing well. She has not had any bowel movements, but has had some gas. Patient also states that she 's been eating more food. Has had some burping today. Overall feels significantly better. Still has some mild discomfort over the right mid abdomen , which has improved significantly since last seeing her. Review of Systems Constitutional: DENIES: Diaphoretic episodes, Fatigue, Fever, Weight gain, Weight loss, Chills, Dizziness, Change in appetite, Night Sweats Eyes: DENIES: Blurred vision, Diplopia, Eye pain, Vision loss Ears, nose, mouth, throat: DENIES: Hearing loss, Vertigo, Nasal discharge, Oral lesions Respiratory: DENIES: Apneas, Cough, Snoring, Wheezing, Hemoptysis Cardiovascular: COMPLAINS OF: Chest pain, DENIES: Palpitations, Syncope, Dyspnea on Exertion, PND, Lower Extremity Edema, Orthopnea Gastrointestinal: COMPLAINS OF: Abdominal pain, DENIES: Black stools, Bloody stools, Constipation, Diarrhea, Nausea, Vomiting, Difficulty Swallowing Musculoskeletal: DENIES: Joint pain, Muscle aches, Stiffness, Joint Swelling Integumentary: DENIES: Abnormal pigmentation, Pruritus, Rash, Nail changes Neurologic: DENIES: Headache, Localized weakness, Paresthesias, Seizures, Speech Problems Psychiatric: DENIES: Anxiety, Confusion, Mood changes, Depression, Hallucinations, Agitation, Suicidal Ideation Past Family Social History Past Medical History Osteoporosis Gallstones Past Surgical History No surgeries Allergies: Coded Allergies: No Known Allergies (Unverified Allergy, Unknown, 07/19/17) Family History Father: at 80 from "malpractice," hernia Mother: Diabetes, ope heart surgery Son: healthy Social History EtOH: occasional Tobacco: never Drugs: none Physical Exam Vital Signs Vital Signs Date Time Temp Pulse Resp B/P (MAP) Pulse Ox O2 Delivery O2 Flow Rate FiO2 07/20/17 12:06 97.9 68 20 114/61 (78) 94 07/20/17 08:07 98.5 69 20 118/58 (78) 94 07/20/17 08:00 96 Room Air 07/20/17 04:00 97.2 82 17 110/55 (73) 95 07/20/17 00:00 97.5 72 17 121/74 (90) 94 07/19/17 20:00 Room Air 07/19/17 20:00 97.4 77 17 102/58 (73) 98 07/19/17 18:37 Nasal Cannula 2.00 07/19/17 17:43 97.9 86 20 128/63 (84) 97 07/19/17 17:20 78 14 138/66 (90) 99 Nasal Cannula 2 07/19/17 17:00 79 14 141/67 (91) 99 Nasal Cannula 2 07/19/17 16:45 81 14 119/70 (86) 99 Nasal Cannula 2 07/19/17 16:34 98.1 97 14 110/73 (85) 100 Nasal Cannula 2 07/19/17 14:16 99.3 88 20 166/76 (106) 97 Physical Exam GENERAL: This is a well-nourished, well-developed patient, in no apparent distress. SKIN: No rashes, ecchymoses or lesions. Cool and dry. HEAD: Atraumatic. Normocephalic. No temporal or scalp tenderness. EYES: Pupils equal round and reactive. Extraocular motions intact. No scleral icterus. No injection or drainage. ENT: Nose without bleeding, purulent drainage or septal hematoma. Throat without erythema, tonsillar hypertrophy or exudate. Uvula midline. Airway patent. NECK: Trachea midline. No JVD or lymphadenopathy. Supple, nontender, no meningeal signs. CARDIOVASCULAR: Regular rate and rhythm without murmurs, gallops, or rubs. RESPIRATORY: Clear to auscultation. Breath sounds equal bilaterally. No wheezes , rales, or rhonchi. GASTROINTESTINAL: Abdomen soft, TTP over the right mid abdomen. Surgical incision patino, with no bleeding. Drain placed. MUSCULOSKELETAL: Extremities without clubbing, cyanosis, or edema. No joint tenderness, effusion, or edema noted. No calf tenderness. Negative Homans sign bilaterally. NEUROLOGICAL: Awake and alert. Cranial nerves II through XII intact. Motor and sensory grossly within normal limits. Five out of 5 muscle strength in all muscle groups. Normal speech. Laboratory Laboratory Tests Test 07/20/17 03:36 07/20/17 06:25 Urine Color YELLOW Urine Turbidity CLEAR Urine pH 6.0 Urine Specific [place] 1.015 Urine Protein TRACE Urine Glucose (UA) 1000 Urine Ketones NEG Urine Occult Blood TRACE Urine Nitrite NEG Urine Bilirubin NEG Urine Urobilinogen LESS THAN 2.0 Urine Leukocyte Esterase SMALL Urine RBC 6 Urine WBC 4 Urine Squamous Epithelial Cells 4 Urine Bacteria RARE Microscopic Urinalysis Comment CULT NOT INDICATED White Blood Count 20.0 Red Blood Count 3.78 Hemoglobin 10.7 Hematocrit 32.2 Mean Corpuscular Volume 85.1 Mean Corpuscular Hemoglobin 28.5 Mean Corpuscular Hemoglobin Concent 33.4 Red Cell Distribution Width 14.0 Platelet Count 201 Mean Platelet Volume 9.8 Blood Urea Nitrogen 15 Creatinine 0.80 Random Glucose 136 Calcium Level 8.0 Sodium Level 136 Potassium Level 4.0 Chloride Level 104 Carbon Dioxide Level 24.8 Anion Gap 7 Estimat Glomerular Filtration Rate 72 Result Diagram: 07/20/17 0625 07/20/17 0625 Imaging Last 24 hours Impressions Chest X-Ray 07/19/17 1218 Signed Impressions: Service Date/Time: Wednesday, July 19, 2017 12:25 - CONCLUSION: Mild suspected atelectasis or consolidation at the right base. Yonis Shaffer MD Cholangiopancreatography MRI 07/19/17 0000 Signed Impressions: Service Date/Time: Wednesday, July 19, 2017 10:55 - CONCLUSION: Cholelithiasis with a distended gallbladder, thickened gallbladder wall, and surrounding inflammatory change thought to be secondary to cholecystitis. MD Jasmyn Alejandre VTE Risk Assessment Jasmyn VTE Risk Assessment: Mod/High Risk (score >= 2) Caprini Risk Assessment Model Point Value = 1 Point Value = 2 Point Value = 3 Point Value = 5 Age 41-60 Minor surgery BMI > 25 kg/m2 Swollen legs Varicose veins or History of unexplained or recurrent spontaneous Oral contraceptives or hormone replacement Sepsis (< 1 month) Serious lung disease, including pneumonia (< 1 month) Abnormal pulmonary function Acute myocardial infarction Congestive heart failure (< 1 month) History of inflammatory bowel disease Medical patient at bed rest Age 61-74 Arthroscopic surgery Major open surgery (> 45 min) Laparoscopic surgery (> 45 min) Malignancy Confined to bed (> 72 hours) Immobilizing plaster cast Central venous access Age >= 75 History of VTE Family history of VTE Factor V Leiden Prothrombin [id number] Lupus anticoagulant Anticardiolipin antibodies Elevated serum homocysteine Heparin-induced thrombocytopenia Other congenital or acquired thrombophilia Stroke (< 1 month) Elective arthroplasty Hip, pelvis, or leg fracture Acute spinal cord injury (< 1 month) Prophylaxis Regimen Total Risk Factor Score Risk Level Prophylaxis Regimen 0-1 Low Early ambulation 2 Moderate Order ONE of the following: *Sequential Compression Device (SCD) *Heparin 5000 units SQ BID 3-4 Higher Order ONE of the following medications: *Heparin 5000 units SQ TID *Enoxaparin/Lovenox 40 mg SQ daily (WT < 150 kg, CrCl > 30 mL/min) *Enoxaparin/Lovenox 30 mg SQ daily (WT < 150 kg, CrCl > 10-29 mL/min) *Enoxaparin/Lovenox 30 mg SQ BID (WT < 150 kg, CrCl > 30 mL/min) AND/OR *Sequential Compression Device (SCD) 5 or more Highest Order ONE of the following medications: *Heparin 5000 units SQ TID (Preferred with Epidurals) *Enoxaparin/Lovenox 40 mg SQ daily (WT < 150 kg, CrCl > 30 mL/min) *Enoxaparin/Lovenox 30 mg SQ daily (WT < 150 kg, CrCl > 10-29 mL/min) *Enoxaparin/Lovenox 30 mg SQ BID (WT < 150 kg, CrCl > 30 mL/min) AND *Sequential Compression Device (SCD) Assessment and Plan Assessment and Plan 67-year-old female with history of gallstones presents with calculus cholecystitis. Patient also complains of recent hematuria and dysuria. Possible UTI. Patient also complains of chest pain, shortness of breath, rule out ACS. Problem List: (1) Calculus of gallbladder with cholecystitis ICD Codes: K80.10 - Calculus of gallbladder with chronic cholecystitis without obstruction Plan: Patient underwent cholecystectomy. Seems that surgery was successful. Pain is improving Discussed her care with the surgical team. We'll continue to monitor patient She'll be able to eat, Has been eating a little bit and drinking with no issues. On antibiotics we'll continue to monitor her leukocytosis, improving at this time (2) Chest pain ICD Codes: R07.9 - Chest pain, unspecified Plan: Improving Reviewed patient's EKG Negative troponins Continue to monitor (3) UTI (urinary tract infection) ICD Codes: N39.0 - Urinary tract infection, site not specified Plan: No symptoms at this time Reviewed her UA Was placed on antibiotics We'll await culture (4) Hypertension ICD Codes: I10 - Essential (primary) hypertension Plan: Blood pressure well controlled When necessary medication placed We'll continue to monitor (5) FEN Plan: Continue maintenance fluid Contingent on her electrolytes Allow diet I have reviewed the patients past medical/surgical and social histories and updated as appropriate. Parts of this note were created using [employer] voice recognition software program. While efforts were made to correct any mistakes made by this software, some mistakes, errors, and omissions may remain in the final note that were not caught when the note was originally created. Plan of care was discussed and agreed upon with the patient as specifically documented in the above note. An opportunity to ask questions with explanation was provided. Patient voiced understanding on all information reviewed and discussed. Physician Certification 2 Midnight Certification Type: Continued Stay Order for Inpatient Services The services are ordered in accordance with Medicare regulations or non- Medicare payer requirements, as applicable. In the case of services not specified as inpatient-only, they are appropriately provided as inpatient services in accordance with the 2-midnight benchmark. Estimated LOS (days): 2 days is the estimated time the patient will need to remain in the hospital, assuming treatment plan goals are met and no additional complications. Post-Hospital Plan: Home Carlos A Valenzuela MD Jul 20, 2017 13:39
[2017-07-20] MEDS: ENOXAPARIN SODIUM 40 MG/0.4 ML SYRINGE SQ SCH (20:40)
[2017-07-21 03:49] VITALS: BP 123/66; PULSE 87; RESP 16; TEMP 98.9; O2SAT 94
[2017-07-21] MEDS: ACETAMINOPHEN/HYDROcodone 325 MG/5 MG TAB PO PRN ×2 (06:40→20:05)
[2017-07-21 08:00] VITALS: BP 132/60; PULSE 73; RESP 20; TEMP 98.4; O2SAT 93
[2017-07-21 08:34] LABS: AUTOMATED NEUTROPHIL # 7.8 TH/MM3 (1.8-7.7); BASOPHIL % 0.2 % (0.0-2.0); EOSINOPHIL # 0.1 TH/MM3 (0-0.4); EOSINOPHIL % 0.5 % (0.0-4.0); HEMATOCRIT 29.9 % (35.0-46.0); HEMOGLOBIN 10.1 GM/DL (11.6-15.3); LYMPH % 21.1 % (9.0-44.0); LYMPHOCYTE # 2.3 TH/MM3 (1.0-4.8); MEAN CELL VOLUME 84.7 FL (80.0-100.0); MEAN CORPUSCULAR HEMOGLOBIN 28.5 PG (27.0-34.0); MEAN CORPUSCULAR HGB CONC 33.7 % (32.0-36.0); MEAN PLATELET VOLUME 9.7 FL (7.0-11.0); MONO % 7.4 % (0.0-8.0); MONOCYTE # 0.8 TH/MM3 (0-0.9); NEUT % 70.8 % (16.0-70.0); PLATELET COUNT 194 TH/MM3 (150-450); RED BLOOD COUNT 3.53 MIL/MM3 (4.00-5.30)
[2017-07-21] MEDS: SODIUM CHLORIDE 0.9% FLUSH 10 ML FLUSH IV FLUSH SCH ×2 (08:46→20:04)
[2017-07-21] MEDS: DOCUSATE SODIUM 50 MG/SENNA 8.6 MG TAB PO SCH ×2 (08:46→20:05)
[2017-07-21 09:00] LABS: ALKALINE PHOSPHATASE 95 U/L (45-117); ALT (GPT) 66 U/L (10-53); AST (GOT) 26 U/L (15-37); BICARBONATE 27.9 MEQ/L (21.0-32.0); BLOOD UREA NITROGEN 13 MG/DL (7-18); CALCIUM 7.8 MG/DL (8.5-10.1); CHLORIDE 106 MEQ/L (98-107); CREATININE 0.65 MG/DL (0.50-1.00); GLOMERULAR FILTRATION RATE 91 ML/MIN (>89); GLUCOSE,RANDOM 91 MG/DL (74-106); SODIUM (NA) 139 MEQ/L (136-145); TOTAL BILIRUBIN ADULT 0.6 MG/DL (0.2-1.0); TOTAL PROTEIN 5.5 GM/DL (6.4-8.2)
--- NOTE | 2017-07-21 10:42 | HHI.FPPN ---
Subjective Remarks Patient seen and examined this morning. No acute events overnight. Patient reports feeling better, eating some food without vomiting. Occasional nausea. Endorses abdominal soreness. Feels weak and is working with physical therapy. Denies any chest pain, shortness of breath, leg pain. (Phillip Bazan MD, R2) Objective Vitals Vital Signs Date Time Temp Pulse Resp B/P (MAP) Pulse Ox O2 Delivery O2 Flow Rate FiO2 07/21/17 08:00 98.4 73 20 132/60 (84) 93 07/21/17 03:49 98.9 87 16 123/66 (85) 94 07/20/17 23:00 98.0 80 16 114/58 (76) 93 07/20/17 19:52 98.1 69 16 107/56 (73) 95 07/20/17 19:45 Room Air 07/20/17 16:05 97.9 66 20 111/58 (75) 94 07/20/17 12:06 97.9 68 20 114/61 (78) 94 I/O 07/20/17 07/20/17 07/20/17 07/21/17 07/21/17 07/21/17 07:00 15:00 23:00 07:00 15:00 23:00 Intake Total 1233 ml 380 ml 480 ml Output Total 710 ml 100 ml 630 ml 980 ml Balance 523 ml -100 ml -250 ml -500 ml Intake Oral 420 ml 380 ml 480 ml IV Total 813 ml Output Urine Total 700 ml 600 ml 950 ml Drainage Total 10 ml 100 ml 30 ml 30 ml # Voids 2 3 # Bowel Movements 0 0 0 (Phillip Bazan MD, R2) Result Diagram: 07/21/17 0700 07/21/17 0700 Objective Remarks GENERAL: NAD, lying in bed SKIN: Warm and dry. CARDIOVASCULAR: Regular rate and rhythm. RESPIRATORY: No accessory muscle use. Clear to auscultation. Breath sounds equal bilaterally. GASTROINTESTINAL: Abdomen soft, non-tender, nondistended. Bandages in place with REYES drain, serosanguineous fluid. clean/dry/intact. MUSCULOSKELETAL: Extremities without clubbing, cyanosis, or edema. NEUROLOGICAL: Awake and alert. Normal speech. PSYCHIATRIC: Appropriate mood and affect; insight and judgment normal. (Phillip Bazan MD, R2) A/P Assessment and Plan 67-year-old female with history of gallstones presents with calculus cholecystitis. Discharge Planning Pending surgery clearance (Phillip Bazan MD, R2) Problem List: (1) Calculus of gallbladder with cholecystitis ICD Codes: K80.10 - Calculus of gallbladder with chronic cholecystitis without obstruction Plan: POD#2 cholecystectomy Pain is improving Leukocytosis improving, down to 11 today Surgery consulted-appreciate recs -F/u Dr. Winters this week after d/c for REYES removal -Regular diet -[place], morphine PRN pain (2) Hypertension ICD Codes: I10 - Essential (primary) hypertension Plan: Blood pressure well controlled When necessary medication placed We'll continue to monitor (3) FEN Plan: Continue maintenance fluid Contingent on her electrolytes Allow diet (Phillip Bazan MD, R2) Problem List: (1) Calculus of gallbladder with cholecystitis ICD Codes: K80.10 - Calculus of gallbladder with chronic cholecystitis without obstruction Plan: POD#2 cholecystectomy Pain is improving Leukocytosis improving, down to 11 today Surgery consulted-appreciate recs -F/u Dr. Winters this week after d/c for REYES removal -Regular diet -[place], morphine PRN pain (2) Hypertension ICD Codes: I10 - Essential (primary) hypertension Plan: Blood pressure well controlled When necessary medication placed We'll continue to monitor (3) FEN Plan: Continue maintenance fluid Contingent on her electrolytes Allow diet See the residents documentation for details. I saw and evaluated the patient regarding the [place] portions of this evaluation and agree with the residents findings and plans as written. Parts of this note were created using [employer] voice recognition software program. While efforts were made to correct any mistakes made by this software, some mistakes, errors, and omissions may remain in the final note that were not caught when the note was originally created. (Carlos A Valenzuela MD) Problem Qualifiers (1) Hypertension: Qualified Codes: I10 - Essential (primary) hypertension Phillip Bazan MD, R2 Jul 21, 2017 10:42 Carlos A Valenzuela MD Jul 22, 2017 13:04
[2017-07-21] MEDS ORDERED: CALCIUM CARBONATE 1.25 GM (CA 500 MG) TAB PO ONE (11:00)
[2017-07-21 12:00] VITALS: BP 136/61; PULSE 81; RESP 20; TEMP 98.3; O2SAT 96
[2017-07-21 12:33] LABS: HEMOGLOBIN A1C 5.4 % (4.3-6.0)
[2017-07-21 16:00] VITALS: BP 115/82; PULSE 82; RESP 20; TEMP 98.9; O2SAT 96
[2017-07-21 20:00] VITALS: BP 125/57; PULSE 77; RESP 16; TEMP 98.3; O2SAT 95
[2017-07-21] MEDS: ENOXAPARIN SODIUM 40 MG/0.4 ML SYRINGE SQ SCH (20:05)
[2017-07-22] VITALS: BP 136/64; PULSE 71; RESP 16; TEMP 98.1; O2SAT 96
[2017-07-22 04:00] VITALS: BP 158/72; PULSE 69; RESP 18; TEMP 98.1; O2SAT 98
[2017-07-22] MEDS: ACETAMINOPHEN/HYDROcodone 325 MG/5 MG TAB PO PRN ×2 (05:22→14:47)
[2017-07-22 07:40] LABS: AUTOMATED NEUTROPHIL # 4.1 TH/MM3 (1.8-7.7); BASOPHIL # 0.1 TH/MM3 (0-0.2); BASOPHIL % 0.8 % (0.0-2.0); EOSINOPHIL # 0.3 TH/MM3 (0-0.4); EOSINOPHIL % 3.7 % (0.0-4.0); HEMOGLOBIN 10.1 GM/DL (11.6-15.3); LYMPHOCYTE # 2.1 TH/MM3 (1.0-4.8); MEAN CELL VOLUME 84.3 FL (80.0-100.0); MEAN CORPUSCULAR HEMOGLOBIN 28.3 PG (27.0-34.0); MEAN CORPUSCULAR HGB CONC 33.6 % (32.0-36.0); MEAN PLATELET VOLUME 8.7 FL (7.0-11.0); MONO % 8.4 % (0.0-8.0); MONOCYTE # 0.6 TH/MM3 (0-0.9); NEUT % 57.1 % (16.0-70.0); PLATELET COUNT 229 TH/MM3 (150-450); RED BLOOD COUNT 3.55 MIL/MM3 (4.00-5.30); RED CELL DISTRIBUTION WIDTH 13.9 % (11.6-17.2); WHITE BLOOD COUNT 7.1 TH/MM3 (4.0-11.0)
[2017-07-22 08:00] VITALS: BP 155/72; PULSE 73; RESP 20; TEMP 98.1; O2SAT 96
[2017-07-22 08:11] LABS: CALCIUM 8.1 MG/DL (8.5-10.1); CREATININE 0.61 MG/DL (0.50-1.00)
[2017-07-22] MEDS: SODIUM CHLORIDE 0.9% FLUSH 10 ML FLUSH IV FLUSH SCH (08:42)
[2017-07-22] MEDS: DOCUSATE SODIUM 50 MG/SENNA 8.6 MG TAB PO SCH (08:42)
--- NOTE | 2017-07-22 11:02 | HHI.FPPN ---
Subjective Remarks Patient seen and examined this morning. No acute events overnight. Patient states that she has minimal pain in her abdomen at the site of the REYES drain. No nausea, vomiting, fever, chills, shortness of breath, chest pain. She states she still hasn't had a bowel movement, however she notes this is normal for her. She has been passing gas. No other complaints at this time. (Erick Nagel MD R1) Objective Vitals Vital Signs Date Time Temp Pulse Resp B/P (MAP) Pulse Ox O2 Delivery O2 Flow Rate FiO2 07/22/17 08:30 Room Air 07/22/17 08:00 98.1 73 20 155/72 (99) 96 07/22/17 04:35 Room Air 07/22/17 04:00 98.1 69 18 158/72 (100) 98 07/22/17 00:00 Room Air 07/22/17 00:00 98.1 71 16 136/64 (88) 96 07/21/17 20:00 98.3 77 16 125/57 (79) 95 07/21/17 20:00 Room Air 07/21/17 16:00 98.9 82 20 115/82 (93) 96 07/21/17 15:00 Room Air 07/21/17 12:00 98.3 81 20 136/61 (86) 96 I/O 07/21/17 07/21/17 07/21/17 07/22/17 07/22/17 07/22/17 07:00 15:00 23:00 07:00 15:00 23:00 Intake Total 480 ml 480 ml 240 ml Output Total 980 ml 10 ml 400 ml 660 ml Balance -500 ml -10 ml 80 ml -420 ml Intake Oral 480 ml 480 ml 240 ml Output Urine Total 950 ml 400 ml 600 ml Drainage Total 30 ml 10 ml 60 ml # Bowel Movements 0 0 0 (Erick Nagel MD R1) Result Diagram: 07/22/17 0650 07/22/17 0650 Objective Remarks GENERAL: NAD, lying in bed SKIN: Warm and dry. CARDIOVASCULAR: Regular rate and rhythm. RESPIRATORY: No accessory muscle use. Clear to auscultation. Breath sounds equal bilaterally. GASTROINTESTINAL: Abdomen soft, non-tender, nondistended. Bandages in place with REYES drain, serosanguineous fluid. clean/dry/intact. MUSCULOSKELETAL: Extremities without clubbing, cyanosis, or edema. NEUROLOGICAL: Awake and alert. Normal speech. PSYCHIATRIC: Appropriate mood and affect; insight and judgment normal. (Erick Nagel MD R1) A/P Assessment and Plan 67-year-old female with history of gallstones presents with calculus cholecystitis. Discharge Planning Pending surgery clearance (Erick Nagel MD R1) Problem List: (1) Calculus of gallbladder with cholecystitis ICD Codes: K80.10 - Calculus of gallbladder with chronic cholecystitis without obstruction Plan: POD#3 cholecystectomy Pain is improving Leukocytosis improving, down to 7.1 today Surgery consulted-appreciate recs -F/u Dr. Winters this week after d/c for REYES removal -Regular diet -[place], morphine PRN pain (2) Hypertension ICD Codes: I10 - Essential (primary) hypertension Plan: Blood pressure well controlled When necessary medication placed We'll continue to monitor (3) FEN Plan: Continue maintenance fluid Contingent on her electrolytes Allow diet (Erick Nagel MD R1) Problem List: (1) Calculus of gallbladder with cholecystitis ICD Codes: K80.10 - Calculus of gallbladder with chronic cholecystitis without obstruction Plan: POD#3 cholecystectomy Pain is improving Leukocytosis improving, down to 7.1 today Surgery consulted-appreciate recs -F/u Dr. Winters this week after d/c for REYES removal -Regular diet -[place], morphine PRN pain (2) Hypertension ICD Codes: I10 - Essential (primary) hypertension Plan: Blood pressure well controlled When necessary medication placed We'll continue to monitor (3) FEN Plan: Continue maintenance fluid Contingent on her electrolytes Allow diet Patient has been ambulating with the help of her son around the floor. She has good support at home, numerous family members. States that she was easily able to walk around the entire floor. Reviewed recommendations from physical therapy , who recommended home therapy. She will need to follow-up with surgery in outpatient setting. See the residents documentation for details. I saw and evaluated the patient regarding the [place] portions of this evaluation and agree with the residents findings and plans as written. Parts of this note were created using [employer] voice recognition software program. While efforts were made to correct any mistakes made by this software, some mistakes, errors, and omissions may remain in the final note that were not caught when the note was originally created. Plan of care was discussed and agreed upon with the patient as specifically documented in the above note. An opportunity to ask questions with explanation was provided. Patient voiced understanding on all information reviewed and discussed. (Carlos A Valenzuela MD) Problem Qualifiers (1) Hypertension: Qualified Codes: I10 - Essential (primary) hypertension Erick Nagel MD R1 Jul 22, 2017 11:02 Carlos A Valenzuela MD Jul 22, 2017 13:12
[2017-07-22 12:00] VITALS: BP 141/64; PULSE 64; RESP 20; TEMP 98.3; O2SAT 98
[2017-07-22] MEDS ORDERED: NORC5TAB PO (13:12)
--- NOTE | 2017-07-22 13:19 | HHI.PR ---
Subjective Subjective Notes feels better. Ready to go home Objective Vitals/I&O Vital Signs Date Time Temp Pulse Resp B/P (MAP) Pulse Ox O2 Delivery O2 Flow Rate FiO2 07/22/17 08:30 Room Air 07/22/17 08:00 98.1 73 20 155/72 (99) 96 07/19/17 18:37 2.00 Labs Laboratory Tests Test 07/22/17 06:50 White Blood Count 7.1 Red Blood Count 3.55 Hemoglobin 10.1 Hematocrit 30.0 Mean Corpuscular Volume 84.3 Mean Corpuscular Hemoglobin 28.3 Mean Corpuscular Hemoglobin Concent 33.6 Red Cell Distribution Width 13.9 Platelet Count 229 Mean Platelet Volume 8.7 Neutrophils (%) (Auto) 57.1 Lymphocytes (%) (Auto) 30.0 Monocytes (%) (Auto) 8.4 Eosinophils (%) (Auto) 3.7 Basophils (%) (Auto) 0.8 Neutrophils # (Auto) 4.1 Lymphocytes # (Auto) 2.1 Monocytes # (Auto) 0.6 Eosinophils # (Auto) 0.3 Basophils # (Auto) 0.1 CBC Comment DIFF FINAL Differential Comment Blood Urea Nitrogen 11 Creatinine 0.61 Random Glucose 93 Calcium Level 8.1 Sodium Level 140 Potassium Level 3.9 Chloride Level 106 Carbon Dioxide Level 29.0 Anion Gap 5 Estimat Glomerular Filtration Rate 98 Abdomen: Non-distended, Other (Incisions clean and dry . Drain with dark bloody drainage with tinge of bile? Dressings changed.), Post-op tenderness Extremities: No edema, Perfused A/P Assessment and Plan Postop lap silvestre for gangrenous cholecystitis. Drain still in, will leave, will follow up in office next week. May shower. Dressing change as needed around drain. Laxative as needed at home. D/W pt's son by phone. Scrip for pain meds on chart. Rome Winters MD Jul 22, 2017 13:19
--- NOTE | 2017-07-22 13:21 | HHI.FF ---
Face to Face Verification Diagnosis: (1) Acute cholecystitis Home Health Nursing Order: Wound care and dressing changes Instructions: Routine REYES care and monitoring; please record daily output; place dry 4x4 around drain I have seen patient Ashley Wilson on 07/22/17. My clinical findings support the need for the requested home health care services because: Limited ability to care for self High risk of falls I certify that my clinical findings support that this patient is homebound because: Post-op weakness Emilee Hanna Jul 22, 2017 13:21
--- NOTE | 2017-07-22 13:51 | HHI.DS ---
Discharge Summary Admission Date Jul 19, 2017 at 10:35 Admitting Diagnosis acute cholecystitis, rule out choledocholithiasis (1) Calculus of gallbladder with cholecystitis Diagnosis: Principal Plan: POD#3 cholecystectomy Pain is improving Leukocytosis improving, down to 7.1 today Surgery consulted-appreciate recs -F/u Dr. Winters this week after d/c for REYES removal -Regular diet -[place], morphine PRN pain ICD Codes: K80.10 - Calculus of gallbladder with chronic cholecystitis without obstruction (2) Hypertension Diagnosis: Secondary Plan: Blood pressure well controlled When necessary medication placed We'll continue to monitor ICD Codes: I10 - Essential (primary) hypertension (3) FEN Plan: Continue maintenance fluid Contingent on her electrolytes Allow diet Patient has been ambulating with the help of her son around the floor. She has good support at home, numerous family members. States that she was easily able to walk around the entire floor. Reviewed recommendations from physical therapy , who recommended home therapy. She will need to follow-up with surgery in outpatient setting. See the residents documentation for details. I saw and evaluated the patient regarding the [place] portions of this evaluation and agree with the residents findings and plans as written. Parts of this note were created using [employer] voice recognition software program. While efforts were made to correct any mistakes made by this software, some mistakes, errors, and omissions may remain in the final note that were not caught when the note was originally created. Plan of care was discussed and agreed upon with the patient as specifically documented in the above note. An opportunity to ask questions with explanation was provided. Patient voiced understanding on all information reviewed and discussed. Brief History Patient feeling significantly better today. She was seen at bedside. She underwent surgical intervention yesterday. She is accompanied by her son at bedside. We are able to communicate today without the use of Stratis. We did do Stratis for the initial admission, for which is also present. She feels much better today. She has a drain tube placed. Which seems to be draining some blood tinged fluid. Patient's wound seemed to be healing well. She has not had any bowel movements, but has had some gas. Patient also states that she 's been eating more food. Has had some burping today. Overall feels significantly better. Still has some mild discomfort over the right mid abdomen , which has improved significantly since last seeing her. CBC/BMP: 07/22/17 0650 07/22/17 0650 Significant Findings Laboratory Tests Test 07/20/17 03:36 07/20/17 06:25 07/21/17 07:00 07/22/17 06:50 Urine Glucose (UA) 1000 mg/dL (NEG) Urine Occult Blood TRACE (NEG) Urine Leukocyte Esterase SMALL (NEG) Urine RBC 6 /hpf (0-3) Urine Bacteria RARE /hpf (NONE) White Blood Count 20.0 TH/MM3 (4.0-11.0) Red Blood Count 3.78 MIL/MM3 (4.00-5.30) 3.53 MIL/MM3 (4.00-5.30) 3.55 MIL/MM3 (4.00-5.30) Hemoglobin 10.7 GM/DL (11.6-15.3) 10.1 GM/DL (11.6-15.3) 10.1 GM/DL (11.6-15.3) Hematocrit 32.2 % (35.0-46.0) 29.9 % (35.0-46.0) 30.0 % (35.0-46.0) Random Glucose 136 MG/DL (74-106) Calcium Level 8.0 MG/DL (8.5-10.1) 7.8 MG/DL (8.5-10.1) 8.1 MG/DL (8.5-10.1) Estimat Glomerular Filtration Rate 72 ML/MIN (>89) Neutrophils (%) (Auto) 70.8 % (16.0-70.0) Neutrophils # (Auto) 7.8 TH/MM3 (1.8-7.7) Total Protein 5.5 GM/DL (6.4-8.2) Albumin 2.0 GM/DL (3.4-5.0) Alanine Aminotransferase (ALT/SGPT) 66 U/L (10-53) Monocytes (%) (Auto) 8.4 % (0.0-8.0) PE at Discharge GENERAL: NAD, lying in bed SKIN: Warm and dry. CARDIOVASCULAR: Regular rate and rhythm. RESPIRATORY: No accessory muscle use. Clear to auscultation. Breath sounds equal bilaterally. GASTROINTESTINAL: Abdomen soft, non-tender, nondistended. Bandages in place with REYES drain, serosanguineous fluid. clean/dry/intact. MUSCULOSKELETAL: Extremities without clubbing, cyanosis, or edema. NEUROLOGICAL: Awake and alert. Normal speech. PSYCHIATRIC: Appropriate mood and affect; insight and judgment normal. Hospital Course Patient admitted 07/19/17 with right abdominal pain which was diagnosed as calculus of gallbladder without obstruction. MRCP showed cholelithiasis with distended gallbladder, thickened gallbladder wall and surrounding inflammatory change thought to be secondary to cholecystitis. A cholecystectomy was performed , gangrenous gallbladder was removed and drain was placed. Patient's observe for complications, afebrile during remainder of stay with no signs of acute abdomen. Abdominal pain was improving the day of discharge. Patient was to follow-up surgery outpatient for removal of the drain. Pt Condition on Discharge: Stable Discharge Disposition: Discharge Home Discharge Instructions DIET: Follow Instructions for: As Tolerated, No Restrictions Activities you can perform: Regular-No Restrictions Follow up Referrals: Appointment for Follow Up - 07/30/17 @ [facility] Appt set for Jul 30 at 11:15AM PCP Follow-up - 1 Week Surgical - 1 Week with Rome Winters MD New Medications: Hydrocodone-Acetaminophen ([place]) 5 Mg-325 Mg Tab 1 TAB PO Q4H PRN for PAIN, #20 TAB 0 Refills Continued Medications: Ursodiol (Ursodiol) 250 Mg Tab 250 MG PO DAILY for Primary biliary cirrhosis, #60 TAB 0 Refills Erick Nagel MD R1 Jul 22, 2017 13:51
--- NOTE | 2017-07-22 13:51 | HHI.DCPOC ---
Discharge Care Plan Diagnosis: (1) Calculus of gallbladder with cholecystitis Goals to Promote Your Health * To prevent worsening of your condition and complications * To maintain your health at the optimal level Directions to Meet Your Goals Take your medications as prescribed Follow your dietary instruction Follow activity as directed Keep your appointments as scheduled Take your immunizations and boosters as scheduled If your symptoms worsen call your PCP, if no PCP go to Urgent Care Center or Emergency Room Smoking is Dangerous to Your Health. Avoid second hand smoke Call the 24-hour hour crisis hotline for domestic abuse at Erick Nagel MD R1 Jul 22, 2017 13:51 Carlos A Valenzuela MD Jul 22, 2017 15:01
[2017-07-22 16:00] VITALS: BP 118/59; PULSE 79; RESP 20; O2SAT 96
== END 2017-07-22 17:50 | disposition home or self-care (01) | DRG 418 ==
LOC: NEPE 08:50 → NEDA 10:35 → N04B 13:26
PROVIDERS: ADMIT Family Medicine; ATTEND Family Medicine
PROC: 0WQF0ZZ Repair Abdominal Wall, Open Approach (ICD-10-PCS; 2017-07-19)
PROC: 0FT44ZZ Resection of Gallbladder, Percutaneous Endoscopic Approach (ICD-10-PCS; principal; 2017-07-19 14:41)
DX: K80.12 Calculus of gallbladder with acute and chronic cholecystitis without obstruction (principal); K42.0 Umbilical hernia with obstruction, without gangrene; I10 Essential (primary) hypertension; M81.0 Age-related osteoporosis without current pathological fracture
CPT/HCPCS: 71010; 74181; 76377; 80048; 80053; 81001; 82150; 83036; 83690; 84484; 85025; 85027; 88304; 93005; 96365; 96375; J0330; J1100; J1650; J2250; J2270; J2370; J2405; J2543; J2710; J3010; J7030; J7120

== ENCOUNTER 2017-08-05 23:14 | Inpatient (IN) | payer OTHER, MEDICAID, MEDICARE ==
[~2017-08-05] VITALS: Ht 154.9 cm; Wt 65.0 kg
[~2017-08-05 23:14] MED LIST changes: -AMOX500T PO; -IBUP800T23 PO; +NORC5TAB PO; -NYST100024 TOP; -OXYB5TAB PO; -OXYB5TAB33 PO; +URSO1TAB5 PO
[2017-08-05 23:18] VITALS: BP 141/81; PULSE 66; RESP 18; TEMP 98.6; O2SAT 100
--- NOTE | 2017-08-05 23:46 | PD ---
HPI Chief Complaint: Abdominal Pain Time Seen by Provider: 23:39 Travel History International Travel<30 days: No Contact w/Intl Traveler<30days: No Traveled to known affect area: No History of Present Illness HPI The patient is a 67 year old female who presents to the [facility] emergency department with a history of abdominal pain that first began at 3 AM yesterday. It lasted for approximate 4 hours and then recurred again at 6 PM. The abdominal pain is in the midepigastric area and bilateral upper quadrants of the abdomen and radiates around to her back. She reports that it is a severe pain. She has difficulty describing the character of the pain. The patient reports having associated nausea without vomiting. She denies having any diarrhea. She has dysuria that began yesterday AM. She is urinating more frequently. The patient is postop from a laparoscopic cholecystectomy and incarcerated umbilical hernia repair done by Dr. Winters on July 19, 2017. According to the operative report the patient's gallbladder was gangrenous. She reports that she had a drain in place that was removed 3-4 days ago. On review of systems, she reports that she has had shortness of breath that also began at 6 PM. A review of systems otherwise she denies having any fevers, cough, congestion, neck pain, chest pain, or neurologic symptoms. Her last BM was today at 10AM. No blood in her stool. PFSH Past Medical History Narrative Medical The patient's past medical history is significant for osteoporosis. PCP: Dr. Butterfield Diminished Hearing: No Past Surgical History Narrative Surgical The patient's past surgical history is significant for hernia repair, cholecystectomy. Cholecystectomy: Yes Social History Alcohol Use: No Tobacco Use: No Substance Use: No Allergies-Medications (Allergen,Severity, Reaction): Coded Allergies: No Known Allergies (Unverified Allergy, Unknown, 08/05/17) Reported Meds & Prescriptions Reported Meds & Active Scripts Active [place] (Hydrocodone-Acetaminophen) 5 Mg-325 Mg Tab 1 Tab PO Q4H PRN Review of Systems Except as stated in HPI: all other systems reviewed are Neg General / Constitutional: No: Fever Eyes: No: Visual changes HENT: No: Headaches Cardiovascular: No: Chest Pain or Discomfort Respiratory: Positive: Shortness of Breath Gastrointestinal: Positive: Nausea, Abdominal Pain, No: Vomiting, Diarrhea Genitourinary: Positive: Frequency, Dysuria, No: Urgency Musculoskeletal: No: Pain Skin: No Rash Neurologic: No: Weakness Psychiatric: No: Depression Endocrine: No: Polydipsia Hematologic/Lymphatic: No: Easy Bruising Physical Exam Narrative General: The patient is a well-developed well-nourished female, uncomfortable appearing on examination, intermittently moaning. Head and Neck exam: Head is normocephalic atraumatic. Eyes: EOMI, pupils are equal round and reactive to light. Slight scleral icterus is noted. Nose: Midline septum with pink mucous membranes Mouth: Dentition unremarkable. Moist mucus membranes. Posterior oropharynx is not erythematous. No tonsillar hypertrophy. Uvula midline. Airway patent. Neck: No palpable lymphadenopathy. No nuchal rigidity. No thyromegaly. Cardiovascular: Regular rate and rhythm without murmurs, gallops, or rubs. Lungs: Clear to auscultation bilaterally. No wheezes, rhonchi, or rales. Abdomen: Soft, with tenderness on palpation in all 4 quadrants of the abdomen. The patient has voluntary guarding without rebound or rigidity. Normal bowel sounds are audible. Extremities: No clubbing, cyanosis, or edema. 2+ pulses in all 4 extremities. Back: No spinous process tenderness to palpation. Bilateral CVA tenderness on palpation. Neurologic Exam: Grossly nonfocal. Skin Exam: No rash noted. Intact skin that is warm and dry. Data Data Last Documented VS Vital Signs Date Time Temp Pulse Resp B/P (MAP) Pulse Ox O2 Delivery O2 Flow Rate FiO2 08/06/17 01:34 16 08/06/17 00:35 98 Nasal Cannula 08/05/17:18 98.6 66 Orders Orders Electrocardiogram (08/05/17 23:44) Complete Blood Count With Diff (08/05/17 23:44) Comprehensive Metabolic Panel (08/05/17 23:44) C-Reactive Protein (Crp) (08/05/17 23:44) Lipase (08/05/17 23:44) Urinalysis - C+S If Indicated (08/05/17 23:44) Magnesium (Mg) (08/05/17 23:44) Iv Access Insert/Monitor (08/05/17 23:44) Ecg Monitoring (08/05/17 23:44) Oximetry (08/05/17 23:44) Chest, Single Ap (08/06/17 00:10) Sodium Chlor 0.9% 1000 Ml Inj (Ns 1000 M (08/06/17 00:15) Morphine Inj (Morphine Inj) (08/06/17 00:15) Ondansetron Inj (Zofran Inj) (08/06/17 00:15) Ct Abd/Pel W Iv Contrast(Rout) (08/06/17 00:10) Piperacil-Tazo 3.375 Gm Premix (Zosyn 3. (08/06/17 02:15) Iohexol 350 Inj (Omnipaque 350 Inj) (08/06/17 02:27) Blood Culture (08/06/17 02:59) Lactic Acid Sepsis Protocol (08/06/17 02:59) Admit Order (Ed Use Only) (08/06/17 03:04) Diet Npo (08/06/17 Breakfast) Labs Laboratory Tests Test 08/05/17 23:54 08/06/17 02:20 08/06/17 02:25 Blood Urea Nitrogen 9 MG/DL Creatinine 0.74 MG/DL Random Glucose 129 MG/DL Total Protein 6.9 GM/DL Albumin 3.3 GM/DL Calcium Level 8.7 MG/DL Magnesium Level 1.9 MG/DL Alkaline Phosphatase 332 U/L Aspartate Amino Transf (AST/SGOT) 1014 U/L Alanine Aminotransferase (ALT/SGPT) 1269 U/L Total Bilirubin 4.4 MG/DL Sodium Level 139 MEQ/L Potassium Level 3.5 MEQ/L Chloride Level 106 MEQ/L Carbon Dioxide Level 27.9 MEQ/L Anion Gap 5 MEQ/L Estimat Glomerular Filtration Rate 78 ML/MIN C-Reactive Protein 0.57 MG/DL Lipase 94985 U/L Urine Color YELLOW Urine Turbidity CLEAR Urine pH 5.5 Urine Specific [place] 1.020 Urine Protein NEG mg/dL Urine Glucose (UA) NEG mg/dL Urine Ketones NEG mg/dL Urine Occult Blood TRACE Urine Nitrite NEG Urine Bilirubin SMALL Urine Urobilinogen LESS THAN 2.0 MG/DL Urine Leukocyte Esterase LARGE Urine RBC 4 /hpf Urine WBC 1 /hpf Urine Squamous Epithelial Cells 1 /hpf Microscopic Urinalysis Comment CULT NOT INDICATED White Blood Count 10.1 TH/MM3 Red Blood Count 3.73 MIL/MM3 Hemoglobin 10.4 GM/DL Hematocrit 31.8 % Mean Corpuscular Volume 85.1 FL Mean Corpuscular Hemoglobin 27.9 PG Mean Corpuscular Hemoglobin Concent 32.8 % Red Cell Distribution Width 14.4 % Platelet Count 254 TH/MM3 Mean Platelet Volume 9.4 FL Neutrophils (%) (Auto) 77.8 % Lymphocytes (%) (Auto) 13.1 % Monocytes (%) (Auto) 6.1 % Eosinophils (%) (Auto) 2.1 % Basophils (%) (Auto) 0.9 % Neutrophils # (Auto) 7.9 TH/MM3 Lymphocytes # (Auto) 1.3 TH/MM3 Monocytes # (Auto) 0.6 TH/MM3 Eosinophils # (Auto) 0.2 TH/MM3 Basophils # (Auto) 0.1 TH/MM3 CBC Comment DIFF FINAL Differential Comment MDM Medical Decision Making Medical Screen Exam Complete: Yes Emergency Medical Condition: Yes Medical Record Reviewed: Yes Interpretation(s) Last Impressions Chest X-Ray 08/06/179 Signed Impressions: Service Date/Time: Sunday, August 06, 2017 00:22 - CONCLUSION: No acute disease. Yonis Shaffer MD Abdomen/Pelvis CT 08/06/179 Signed Impressions: Service Date/Time: Sunday, August 06, 2017 01:57 - CONCLUSION: 1. Intra and extra hepatic biliary duct dilatation with small foci of air within the gallbladder. There appears to be in the lumen or potentially the wall. Gas can be seen within the gallstones. Cholecystitis needs to be considered. 2. Calcified leiomyoma the uterus. 3. Post heart change in lumbar spine. 4. Areas of sclerosis of the left ilium. These are nonspecific. These could be further evaluated with a bone scan at a later date to determine if these are metabolically active or not. Yonis Shaffer MD Differential Diagnosis Postop abscess, versus peritonitis, versus pancreatitis, versus retained biliary stone, versus pyelonephritis Narrative Course During the course of the patients emergency department visit, the patients history, examination, and differential diagnosis were reviewed with the patient. The patient was placed on a information strategist with oximetry and frequent blood pressure monitoring. The patient had IV access obtained and blood work sent for analysis. The patient was initially provided normal saline a 1 L IV fluid bolus, morphine 4 mg IV, Zofran 4 mg IV. The patients laboratory studies were reviewed and remarkable for a white count of 10.1, hemoglobin 10.4, platelets 254 with 77.8 neutrophils. CMP is remarkable for a GFR 78, glucose 129, total bilirubin 4.4, AST 1014, ALT 1269, alkaline phosphatase 332, C-reactive protein 0.57, lipase 32,723, lactic acid 0.9. Urinalysis shows trace occult blood, small bilirubin, large leukocyte esterase, 4 rbc's, 1 wbc. Radiology studies were reviewed and remarkable for a chest x-ray that shows no acute cardiopulmonary disease, CT scan of the abdomen and pelvis shows intra- and extrahepatic biliary duct dilatation with small focus of air within the gallbladder fossa. The patient is status post cholecystectomy in late June. Fluid and air in the region is concerning for abscess. A biloma could be considered. Calcified myoma of the uterus is noted. Postoperative changes in the lumbar spine, areas of sclerosis of the left ileum. These are nonspecific. A call was placed out to . The covering surgeon, returned the call. The patient's findings were discussed with him. He recommended that the patient be admitted to the hospitalist service. He agreed with the plan to start the patient on antibiotic. The patient was given Zosyn 3.375 g IV. Blood cultures 2 were ordered. The patient was made nothing by mouth. The patients results were discussed with the patient, including the plan of care. I explained that further testing and/ or monitoring is indicated based on the patients history, examination, and/ or laboratory findings. Therefore, I recommended admission for additional evaluation. The patient expressed understanding and was agreeable with this plan. The patient was admitted to the hospital in guarded condition and sent to a bed under the care of the [facility] hospitalist service. Physician Communication Physician Communication The patient's case including history, pertinent physical examination findings, and laboratory studies were discussed with Dr. Higgins at 2:58AM. He recommended that the patient be made nothing by mouth. He recommended that a consultation be placed to Dr. Winters. He recommended continuing antibiotic and IV fluids along with pain control. It was agreed that the patient would be admitted to the hospitalist service for continued evaluation and treatment. The patient's case was discussed with Dr. Dickens who did agree to admit the patient for further evaluation and treatment at this time. Diagnosis Primary Impression: Acute pancreatitis Qualified Codes: K85.90 - Acute pancreatitis without necrosis or infection, unspecified Additional Impressions: Postoperative infection Qualified Codes: T81.4XXA - Infection following a procedure, initial encounter Hepatitis Admitting Information Admitting Physician Requests: it Ruchi Galindo MD Aug 05, 2017 23:46
[2017-08-06] VITALS (9 sets, daily range): BP systolic 116–166; BP diastolic 57–73; PULSE 60–71; RESP 15–20; TEMP 89.6–98.2; O2SAT 97–100
[2017-08-06] MEDS ORDERED: ONDANSETRON HCL 4 MG/2 ML VIAL IV PUSH ONE (00:15)
[2017-08-06] MEDS ORDERED: MORPHINE SULFATE 4 MG/ML INJ IV PUSH ONE (00:15)
[2017-08-06] MEDS ORDERED: SODIUM CHLOR 0.9% 1000 ML INJ 1,000 ML IV ONE (00:15)
[2017-08-06 00:43] LABS: ALBUMIN 3.3 GM/DL (3.4-5.0); BICARBONATE 27.9 MEQ/L (21.0-32.0); BLOOD UREA NITROGEN 9 MG/DL (7-18); CALCIUM 8.7 MG/DL (8.5-10.1); CHLORIDE 106 MEQ/L (98-107); CREATININE 0.74 MG/DL (0.50-1.00); GLOMERULAR FILTRATION RATE 78 ML/MIN (>89); GLUCOSE,RANDOM 129 MG/DL (74-106); MAGNESIUM 1.9 MG/DL (1.5-2.5); SODIUM (NA) 139 MEQ/L (136-145)
[2017-08-06 00:44] LABS: C-REACTIVE PROTEIN 0.57 MG/DL (0.00-0.30)
--- NOTE | 2017-08-06 00:44 | RADRPT ---
EXAM DATE/TIME: 08/06/2017 00:22 [facility] COMPARISON: CHEST SINGLE AP, July 19, 2017, 12:25. INDICATIONS : Short of breath. MEDICAL HISTORY : None. SURGICAL HISTORY : Fusion, lumbar. Total knee replacement, left. ENCOUNTER: Subsequent ACUITY: 1 week PAIN SCORE: 0/10 LOCATION: Bilateral chest FINDINGS: A single view of the chest demonstrates the lungs to be symmetrically aerated without evidence of mas s, infiltrate or effusion. The cardiomediastinal contours are unremarkable. There is a surgical plat e seen at the proximal right humerus. CONCLUSION: No acute disease. Yonis Shaffer MD on August 06, 2017 at 0:41 Board Certified Radiologist. This report was verified electronically.
[2017-08-06 00:51] LABS: ALKALINE PHOSPHATASE 332 U/L (45-117); ALT (GPT) 1269 U/L (10-53); AST (GOT) 1014 U/L (15-37); TOTAL BILIRUBIN ADULT 4.4 MG/DL (0.2-1.0); TOTAL PROTEIN 6.9 GM/DL (6.4-8.2)
[2017-08-06 01:10] LABS: LIPASE 32723 U/L (73-393)
[2017-08-06] MEDS ORDERED: PIPERACIL-TAZO 3.375 GM PREMIX 50 ML IV ONE (02:15)
--- NOTE | 2017-08-06 02:22 | RADRPT ---
EXAM DATE/TIME: 08/06/2017 01:57 [place] Corrected on: August 06, 2017; [facility] COMPARISON: MRCP W/O CONTRAST, July 19, 2017, 10:55. INDICATIONS : Abdomen pain. IV CONTRAST: 100 cc Omnipaque 350 (iohexol) IV ORAL CONTRAST: No oral contrast ingested. RADIATION DOSE: 8.23 CTDIvol (mGy) MEDICAL HISTORY : None SURGICAL HISTORY : Cholecystectomy. spine ENCOUNTER: Initial ACUITY: 1 day PAIN SCALE: 5/10 LOCATION: Bilateral abdomen TECHNIQUE: Volumetric scanning of the abdomen and pelvis was performed. Using automated exposure control and ad justment of the mA and/or kV according to patient size, radiation dose was kept as low as reasonably achievable to obtain optimal diagnostic quality images. DICOM format image data is available electro nically for review and comparison. FINDINGS: LOWER LUNGS: There is minimal suspected atelectasis of the posterior lower lobes. LIVER: There is intrahepatic and extrahepatic biliary duct dilatation. The common bile duct measures up to 1 .4 cm in the stephan hepatis region. There are small foci of gas within the gallbladder fossa. The estefany ent is status post cholecystectomy. SPLEEN: Normal size without lesion. PANCREAS: Within normal limits. KIDNEYS: Normal in size and shape. There is no stone or hydronephrosis. There is a small 0.5 cm suspected cys t at the posterior superior right kidney. ADRENAL GLANDS: Within normal limits. VASCULAR: There is no aortic aneurysm. BOWEL/MESENTERY: The stomach, small bowel, and colon demonstrate no acute abnormality. There is no free intraperitone al air or fluid. ABDOMINAL WALL: Within normal limits. RETROPERITONEUM: There is no lymphadenopathy. BLADDER: No wall thickening or mass. REPRODUCTIVE: Coarse calcifications are seen in the abdomen from a leiomyoma. INGUINAL: There is no lymphadenopathy or hernia. MUSCULOSKELETAL: There is a hemangioma in the T8 vertebral body. There are transpedicular screws at the L5 and S1 leve ls with stabilization devices at the L5-S1 disc level. The patient is status post laminectomy. There is a 0.7 cm sclerotic lesion in the anterior left ilium. There is more ill-defined area of sclerosis in the posterior left ilium. CONCLUSION: 1. Intra and extra hepatic biliary duct dilatation with small foci of air within the gallbladder phani a. The patient is status post cholecystectomy in late June. Fluid and air in this region is femi rning for abscess. A biloma could be considered. 2. Calcified leiomyoma the uterus. 3. Post operative change in lumbar spine. 4. Areas of sclerosis of the left ilium. These are nonspecific. These could be further evaluated with a bone scan at a later date to determine if these are metabolically active or not. Yonis Shaffer MD on August 06, 2017 at 2:10 Board Certified Radiologist. This report was verified electronically. Yonis Shaffer MD on August 06, 2017 at 2:55 Board Certified Radiologist. This report was verified electronically.
[2017-08-06] MEDS ORDERED: IOHEXOL 350 MG/ML 10 ML VIAL (for RAD DIAG) IVCONTRAST ONE (02:27)
[2017-08-06 02:38] LABS: AUTOMATED NEUTROPHIL # 7.9 TH/MM3 (1.8-7.7); BASOPHIL # 0.1 TH/MM3 (0-0.2); BASOPHIL % 0.9 % (0.0-2.0); EOSINOPHIL # 0.2 TH/MM3 (0-0.4); EOSINOPHIL % 2.1 % (0.0-4.0); HEMATOCRIT 31.8 % (35.0-46.0); HEMOGLOBIN 10.4 GM/DL (11.6-15.3); LYMPH % 13.1 % (9.0-44.0); LYMPHOCYTE # 1.3 TH/MM3 (1.0-4.8); MEAN CELL VOLUME 85.1 FL (80.0-100.0); MEAN CORPUSCULAR HEMOGLOBIN 27.9 PG (27.0-34.0); MEAN CORPUSCULAR HGB CONC 32.8 % (32.0-36.0); MEAN PLATELET VOLUME 9.4 FL (7.0-11.0); MONO % 6.1 % (0.0-8.0); MONOCYTE # 0.6 TH/MM3 (0-0.9); NEUT % 77.8 % (16.0-70.0); PLATELET COUNT 254 TH/MM3 (150-450); RED BLOOD COUNT 3.73 MIL/MM3 (4.00-5.30); RED CELL DISTRIBUTION WIDTH 14.4 % (11.6-17.2); WHITE BLOOD COUNT 10.1 TH/MM3 (4.0-11.0)
[2017-08-06 02:47] LABS: BILIRUBIN, URINE SMALL (NEG); BLOOD, URINE TRACE (NEG); GLUCOSE,URINE NEG (NEG); KETONE, URINE NEG (NEG); NITRITE,URINE NEG (NEG); PH, URINE 5.5 (5.0-8.5); SQUAMOUS EPITHELIAL CELL URINE 1 /hpf (0-5); URINE COLOR YELLOW (YELLW/STRAW); URINE LEUKOCYTE ESTERASE LARGE (NEG)
[2017-08-06] MEDS ORDERED: SODIUM CHLORIDE 0.9% FLUSH 10 ML FLUSH IV FLUSH PRN (03:45)
[2017-08-06] MEDS ORDERED: NALOXONE HCL 0.4 MG/ML AMP IV PUSH PRN (03:45)
[2017-08-06] MEDS ORDERED: MORPHINE SULFATE 2 MG/ML INJ IV PUSH PRN (03:45)
--- NOTE | 2017-08-06 05:21 | HHI.HP ---
HPI Service [facility] Primary Care Physician Unknown Admission Diagnosis Post op infection, pancreatitis, hepatitis sp lap silvestre Diagnoses: Chief Complaint: Chills, abdominal pain Travel History International Travel<30 Days: No Contact w/Intl Traveler <30 Da: No Traveled to Known Affected Are: No History of Present Illness 67-year-old female with a history of osteoarthritis and recent cholecystectomy on 07/19/17 presented to the ED with complaints of abdominal pain. Patient states the pain began today and is throbbing in her right upper quadrant, 8/10, worse with movement and palpation, improved with morphine, with associated chills. She denies any fever, nausea, vomiting or headaches. She states she has been unable to take any food or liquids in due to the pain. Review of Systems Except as stated in HPI: all other systems reviewed are Neg Past Family Social History Past Medical History Osteoporosis Past Surgical History Cholecystectomy Reported Medications Reported Meds & Active Scripts Active [place] (Hydrocodone-Acetaminophen) 5 Mg-325 Mg Tab 1 Tab PO Q4H PRN Allergies: Coded Allergies: No Known Allergies (Unverified Allergy, Unknown, 08/05/17) Active Ordered Medications Current Medications Medications (Trade) Dose Ordered Sig/Dasha Route Start Time Stop Time Status Last Admin (NS Flush) 2 ml UNSCH PRN IV FLUSH 08/06/17 03:45 (NS Flush) 2 ml BID IV FLUSH 08/06/17 09:00 (Narcan Inj) 0.4 mg UNSCH PRN IV PUSH 08/06/17 03:45 (Morphine Inj) 2 mg Q3H PRN IV PUSH 08/06/17 03:45 Family History Mother: Diabetes, heart disease Social History Alcohol use: occasional Tobacco use: denies Illicit drug use: denies Physical Exam Vital Signs Vital Signs Date Time Temp Pulse Resp B/P (MAP) Pulse Ox O2 Delivery O2 Flow Rate FiO2 08/06/17 03:29 66 18 166/65 (98) 99 Room Air 08/06/17 01:34 16 08/06/17 00:35 98 Nasal Cannula 08/05/17 23:18 98.6 66 18 141/81 (101) 100 Physical Exam GENERAL: This is a well-nourished, well-developed patient, in no apparent distress. SKIN: No rashes, ecchymoses or lesions. Cool and dry. HEAD: Atraumatic. Normocephalic. EYES: Pupils equal round and reactive. ENT: Nose without bleeding, purulent drainage or septal hematoma.Airway patent. NECK: Trachea midline. No JVD or lymphadenopathy. Supple, nontender, no meningeal signs. CARDIOVASCULAR: Regular rate and rhythm without murmurs, gallops, or rubs. RESPIRATORY: Clear to auscultation. Breath sounds equal bilaterally. No wheezes , rales, or rhonchi. GASTROINTESTINAL: Abdomen soft, right upper quadrant tenderness, nondistended. Bowel sounds 4 MUSCULOSKELETAL: Extremities without clubbing, cyanosis, or edema. No calf tenderness. NEUROLOGICAL: Awake and alert. Motor and sensory grossly within normal limits. Normal speech. Laboratory Laboratory Tests Test 08/05/17 23:54 08/06/17 02:20 08/06/17 02:25 08/06/17 03:25 Blood Urea Nitrogen 9 Creatinine 0.74 Random Glucose 129 Total Protein 6.9 Albumin 3.3 Calcium Level 8.7 Magnesium Level 1.9 Alkaline Phosphatase 332 Aspartate Amino Transf (AST/SGOT) 1014 Alanine Aminotransferase (ALT/SGPT) 1269 Total Bilirubin 4.4 Sodium Level 139 Potassium Level 3.5 Chloride Level 106 Carbon Dioxide Level 27.9 Anion Gap 5 Estimat Glomerular Filtration Rate 78 C-Reactive Protein 0.57 Lipase 65581 Urine Color YELLOW Urine Turbidity CLEAR Urine pH 5.5 Urine Specific [place] 1.020 Urine Protein NEG Urine Glucose (UA) NEG Urine Ketones NEG Urine Occult Blood TRACE Urine Nitrite NEG Urine Bilirubin SMALL Urine Urobilinogen LESS THAN 2.0 Urine Leukocyte Esterase LARGE Urine RBC 4 Urine WBC 1 Urine Squamous Epithelial Cells 1 Microscopic Urinalysis Comment CULT NOT INDICATED White Blood Count 10.1 Red Blood Count 3.73 Hemoglobin 10.4 Hematocrit 31.8 Mean Corpuscular Volume 85.1 Mean Corpuscular Hemoglobin 27.9 Mean Corpuscular Hemoglobin Concent 32.8 Red Cell Distribution Width 14.4 Platelet Count 254 Mean Platelet Volume 9.4 Neutrophils (%) (Auto) 77.8 Lymphocytes (%) (Auto) 13.1 Monocytes (%) (Auto) 6.1 Eosinophils (%) (Auto) 2.1 Basophils (%) (Auto) 0.9 Neutrophils # (Auto) 7.9 Lymphocytes # (Auto) 1.3 Monocytes # (Auto) 0.6 Eosinophils # (Auto) 0.2 Basophils # (Auto) 0.1 CBC Comment DIFF FINAL Differential Comment Lactic Acid Level 0.9 Date/Time Source Procedure Growth Status 08/06/17 03:25 Blood Peripheral Aerobic Blood Culture Pending Received 08/06/17 03:25 Blood Peripheral Anaerobic Blood Culture Pending Received Result Diagram: 08/06/17 0225 08/05/17 2354 Imaging Last Impressions Chest X-Ray 08/06/17 001 Signed Impressions: Service Date/Time: Sunday, August 06, 2017 00:22 - CONCLUSION: No acute disease. Yonis Shaffer MD Abdomen/Pelvis CT 08/06/179 Signed Impressions: Service Date/Time: Sunday, August 06, 2017 01:57 - CONCLUSION: 1. Intra and extra hepatic biliary duct dilatation with small foci of air within the gallbladder fossa. The patient is status post cholecystectomy in late June. Fluid and air in this region is concerning for abscess. A biloma could be considered. 2. Calcified leiomyoma the uterus. 3. Post operative change in lumbar spine. 4. Areas of sclerosis of the left ilium. These are nonspecific. These could be further evaluated with a bone scan at a later date to determine if these are metabolically active or not. MD Jasmyn Alejandre VTE Risk Assessment Caprini VTE Risk Assessment: No/Low Risk (score <= 1) Caprini Risk Assessment Model Point Value = 1 Point Value = 2 Point Value = 3 Point Value = 5 Age 41-60 Minor surgery BMI > 25 kg/m2 Swollen legs Varicose veins or History of unexplained or recurrent spontaneous Oral contraceptives or hormone replacement Sepsis (< 1 month) Serious lung disease, including pneumonia (< 1 month) Abnormal pulmonary function Acute myocardial infarction Congestive heart failure (< 1 month) History of inflammatory bowel disease Medical patient at bed rest Age 61-74 Arthroscopic surgery Major open surgery (> 45 min) Laparoscopic surgery (> 45 min) Malignancy Confined to bed (> 72 hours) Immobilizing plaster cast Central venous access Age >= 75 History of VTE Family history of VTE Factor V Leiden Prothrombin [id number] Lupus anticoagulant Anticardiolipin antibodies Elevated serum homocysteine Heparin-induced thrombocytopenia Other congenital or acquired thrombophilia Stroke (< 1 month) Elective arthroplasty Hip, pelvis, or leg fracture Acute spinal cord injury (< 1 month) Prophylaxis Regimen Total Risk Factor Score Risk Level Prophylaxis Regimen 0-1 Low Early ambulation 2 Moderate Order ONE of the following: *Sequential Compression Device (SCD) *Heparin 5000 units SQ BID 3-4 Higher Order ONE of the following medications: *Heparin 5000 units SQ TID *Enoxaparin/Lovenox 40 mg SQ daily (WT < 150 kg, CrCl > 30 mL/min) *Enoxaparin/Lovenox 30 mg SQ daily (WT < 150 kg, CrCl > 10-29 mL/min) *Enoxaparin/Lovenox 30 mg SQ BID (WT < 150 kg, CrCl > 30 mL/min) AND/OR *Sequential Compression Device (SCD) 5 or more Highest Order ONE of the following medications: *Heparin 5000 units SQ TID (Preferred with Epidurals) *Enoxaparin/Lovenox 40 mg SQ daily (WT < 150 kg, CrCl > 30 mL/min) *Enoxaparin/Lovenox 30 mg SQ daily (WT < 150 kg, CrCl > 10-29 mL/min) *Enoxaparin/Lovenox 30 mg SQ BID (WT < 150 kg, CrCl > 30 mL/min) AND *Sequential Compression Device (SCD) Assessment and Plan Problem List: (1) Acute pancreatitis ICD Code: K85.90 - Acute pancreatitis without necrosis or infection, unspecified Status: Acute (2) Postoperative infection ICD Code: T81.4XXA - Infection following a procedure, initial encounter Status: Acute Assessment and Plan 67-year-old female with a history of osteoarthritis and recent cholecystectomy on 07/19/17 presented to the ED with complaints of abdominal pain. Abdominal pain, suspect abscess, CRP 0.[address] reviewed and shows intra-and extrahepatic biliary duct dilation with small foci of air within the gallbladder fossa status post colectomy, fluid and air in this region is concerning for abscess. -Consult general surgery -Nothing by mouth -Pain management with IV morphine -IV antibiotics: Levaquin and Zosyn Acute pancreatitis, lipase 44900 -[id number] IV for hydration -Nothing by mouth Transaminitis, AST 1014, ALT 1269 -Consult GI for recommendations -Trend CMP DVT prophylaxis: SCDs Discussed Condition With Patient Physician Certification 2 Midnight Certification Type: Admission for Inpatient Services Order for Inpatient Services The services are ordered in accordance with Medicare regulations or non- Medicare payer requirements, as applicable. In the case of services not specified as inpatient-only, they are appropriately provided as inpatient services in accordance with the 2-midnight benchmark. Estimated LOS (days): 3 days is the estimated time the patient will need to remain in the hospital, assuming treatment plan goals are met and no additional complications. Post-Hospital Plan: Home Problem Qualifiers (1) Acute pancreatitis: Qualified Codes: K85.90 - Acute pancreatitis without necrosis or infection, unspecified (2) Postoperative infection: Qualified Codes: T81.4XXA - Infection following a procedure, initial encounter Nohemi Viadl Aug 06, 2017 05:21
[2017-08-06] MEDS ORDERED: MAGNESIUM HYDROXIDE SUSP 30 ML CUP PO PRN (05:45)
[2017-08-06] MEDS ORDERED: BISACODYL 10 MG SUPP RECTAL PRN (05:45)
[2017-08-06] MEDS ORDERED: ACETAMINOPHEN 325 MG TAB PO PRN (05:45)
[2017-08-06] MEDS ORDERED: ONDANSETRON HCL 4 MG/2 ML VIAL IV PUSH PRN (05:45)
[2017-08-06] MEDS: NS + KCL 20 MEQ INJ 1,000 ML IV SCH ×2 (06:00→15:45)
[2017-08-06 08:05] LABS: AUTOMATED NEUTROPHIL # 4.5 TH/MM3 (1.8-7.7); BASOPHIL # 0.1 TH/MM3 (0-0.2); BASOPHIL % 1.1 % (0.0-2.0); EOSINOPHIL # 0.3 TH/MM3 (0-0.4); EOSINOPHIL % 3.5 % (0.0-4.0); HEMATOCRIT 31.9 % (35.0-46.0); HEMOGLOBIN 10.7 GM/DL (11.6-15.3); LYMPH % 26.8 % (9.0-44.0); MEAN CELL VOLUME 84.4 FL (80.0-100.0); MEAN CORPUSCULAR HEMOGLOBIN 28.5 PG (27.0-34.0); MEAN CORPUSCULAR HGB CONC 33.7 % (32.0-36.0); MEAN PLATELET VOLUME 9.4 FL (7.0-11.0); MONO % 7.1 % (0.0-8.0); MONOCYTE # 0.5 TH/MM3 (0-0.9); NEUT % 61.5 % (16.0-70.0); PLATELET COUNT 235 TH/MM3 (150-450); RED BLOOD COUNT 3.77 MIL/MM3 (4.00-5.30); RED CELL DISTRIBUTION WIDTH 14.4 % (11.6-17.2); WHITE BLOOD COUNT 7.3 TH/MM3 (4.0-11.0)
[2017-08-06] MEDS: PIPERACIL-TAZO 3.375 GM PREMIX 50 ML IV SCH ×3 (08:13→20:00)
[2017-08-06 08:50] LABS: ALBUMIN 2.7 GM/DL (3.4-5.0); AST (GOT) 677 U/L (15-37); BICARBONATE 27.5 MEQ/L (21.0-32.0); BLOOD UREA NITROGEN 8 MG/DL (7-18); CALCIUM 8.1 MG/DL (8.5-10.1); CHLORIDE 110 MEQ/L (98-107); CREATININE 0.72 MG/DL (0.50-1.00); GLOMERULAR FILTRATION RATE 81 ML/MIN (>89); GLUCOSE,RANDOM 107 MG/DL (74-106); SODIUM (NA) 143 MEQ/L (136-145)
[2017-08-06 08:57] LABS: ALKALINE PHOSPHATASE 324 U/L (45-117); ALT (GPT) 1032 U/L (10-53); TOTAL BILIRUBIN ADULT 4.8 MG/DL (0.2-1.0); TOTAL PROTEIN 6.1 GM/DL (6.4-8.2)
[2017-08-06] MEDS: SODIUM CHLORIDE 0.9% FLUSH 10 ML FLUSH IV FLUSH SCH ×2 (08:59→20:34)
--- NOTE | 2017-08-06 09:34 | PD.CONS ---
HPI History of Present Illness This is a 67 year old female who came to the emergency room on 08/06/17 for evaluation of right upper quadrant abdominal pain which radiates into her back 2 days. According to the record patient had recent cholecystectomy on 07/19/17 and up to that point was having no problems or symptoms. Patient noted some mild nausea but no vomiting no diarrhea no constipation, no dysphasia. Patient does complain of a decreased appetite. Current lab shows lipase level 24663, C reactive protein 0.57, AST 1014, ALT 1269, bilirubin 4.4. Patient also has anemia which could be secondary to her recent surgery currently stable at 10.4. She denies any obvious rectal bleeding or hemostasis. (Farzaneh Colon) PFSH Past Medical History Osteoporosis GAll bladder disease Past Surgical History Cholecystectomy (Farzaneh Colon) Coded Allergies: No Known Allergies (Unverified Allergy, Unknown, 08/05/17) Medications Administered Medications Medications (Trade) Dose Ordered Sig/Dasha Route PRN Reason Start Time Stop Time Status Last Admin Dose Admin Sodium Chloride (NS Flush) 2 ml BID IV FLUSH 08/06/17 09:00 08/06/17 08:59 Potassium Chloride/Sodium Chloride 1,000 ml @ 100 mls/hr Q10H IV 08/06/17 05:45 08/06/17 06:00 Piperacillin Sod/ Tazobactam Sod 50 ml @ 100 mls/hr Q6H IV 08/06/17 08:00 08/06/17 08:13 Family History Mother: Diabetes, heart disease Social History Alcohol use: occasional Tobacco use: denies Illicit drug use: denies (Farzaneh Colon) Review of Systems Gastrointestinal: COMPLAINS OF: Abdominal pain (with radiating right-sided back pain), Nausea (Farzaneh Colon) GI Exam Vitals I&O Vital Signs Date Time Temp Pulse Resp B/P (MAP) Pulse Ox O2 Delivery O2 Flow Rate FiO2 08/06/17 08:00 98.2 65 20 128/61 (83) 99 Room Air 08/06/17 07:00 63 16 116/57 (76) 98 Room Air 08/06/17 06:04 60 16 123/59 (80) 97 Room Air 08/06/17 03:29 66 18 166/65 (98) 99 Room Air 08/06/17 01:34 16 08/06/17 00:35 98 Nasal Cannula 08/05/17 23:18 98.6 66 18 141/81 (101) 100 I/O 08/05/17 08/05/17 08/05/17 08/06/17 08/06/17 08/06/17 07:00 15:00 23:00 07:00 15:00 23:00 Intake Total 1100 ml 50 ml Balance 1100 ml 50 ml Intake IV Total 1100 ml 50 ml Imaging Last Impressions Chest X-Ray 08/06/17 0010 Signed Impressions: Service Date/Time: Sunday, August 06, 2017 00:22 - CONCLUSION: No acute disease. Yonis Shaffer MD Abdomen/Pelvis CT 08/06/17 001 Signed Impressions: Service Date/Time: Sunday, August 06, 2017 01:57 - CONCLUSION: 1. Intra and extra hepatic biliary duct dilatation with small foci of air within the gallbladder fossa. The patient is status post cholecystectomy in late June. Fluid and air in this region is concerning for abscess. A biloma could be considered. 2. Calcified leiomyoma the uterus. 3. Post operative change in lumbar spine. 4. Areas of sclerosis of the left ilium. These are nonspecific. These could be further evaluated with a bone scan at a later date to determine if these are metabolically active or not. Yonis Shaffer MD Laboratory Test 08/05/17 23:54 08/06/17 02:20 08/06/17 02:25 08/06/17 03:25 Blood Urea Nitrogen 9 MG/DL Creatinine 0.74 MG/DL Random Glucose 129 MG/DL Total Protein 6.9 GM/DL Albumin 3.3 GM/DL Calcium Level 8.7 MG/DL Magnesium Level 1.9 MG/DL Alkaline Phosphatase 332 U/L Aspartate Amino Transf (AST/SGOT) 1014 U/L Alanine Aminotransferase (ALT/SGPT) 1269 U/L Total Bilirubin 4.4 MG/DL Sodium Level 139 MEQ/L Potassium Level 3.5 MEQ/L Chloride Level 106 MEQ/L Carbon Dioxide Level 27.9 MEQ/L Anion Gap 5 MEQ/L Estimat Glomerular Filtration Rate 78 ML/MIN C-Reactive Protein 0.57 MG/DL Lipase 54621 U/L Urine Color YELLOW Urine Turbidity CLEAR Urine pH 5.5 Urine Specific [place] 1.020 Urine Protein NEG mg/dL Urine Glucose (UA) NEG mg/dL Urine Ketones NEG mg/dL Urine Occult Blood TRACE Urine Nitrite NEG Urine Bilirubin SMALL Urine Urobilinogen LESS THAN 2.0 MG/DL Urine Leukocyte Esterase LARGE Urine RBC 4 /hpf Urine WBC 1 /hpf Urine Squamous Epithelial Cells 1 /hpf Microscopic Urinalysis Comment CULT NOT INDICATED White Blood Count 10.1 TH/MM3 Red Blood Count 3.73 MIL/MM3 Hemoglobin 10.4 GM/DL Hematocrit 31.8 % Mean Corpuscular Volume 85.1 FL Mean Corpuscular Hemoglobin 27.9 PG Mean Corpuscular Hemoglobin Concent 32.8 % Red Cell Distribution Width 14.4 % Platelet Count 254 TH/MM3 Mean Platelet Volume 9.4 FL Neutrophils (%) (Auto) 77.8 % Lymphocytes (%) (Auto) 13.1 % Monocytes (%) (Auto) 6.1 % Eosinophils (%) (Auto) 2.1 % Basophils (%) (Auto) 0.9 % Neutrophils # (Auto) 7.9 TH/MM3 Lymphocytes # (Auto) 1.3 TH/MM3 Monocytes # (Auto) 0.6 TH/MM3 Eosinophils # (Auto) 0.2 TH/MM3 Basophils # (Auto) 0.1 TH/MM3 CBC Comment DIFF FINAL Differential Comment Lactic Acid Level 0.9 mmol/L Test 08/06/17 06:49 White Blood Count 7.3 TH/MM3 Red Blood Count 3.77 MIL/MM3 Hemoglobin 10.7 GM/DL Hematocrit 31.9 % Mean Corpuscular Volume 84.4 FL Mean Corpuscular Hemoglobin 28.5 PG Mean Corpuscular Hemoglobin Concent 33.7 % Red Cell Distribution Width 14.4 % Platelet Count 235 TH/MM3 Mean Platelet Volume 9.4 FL Neutrophils (%) (Auto) 61.5 % Lymphocytes (%) (Auto) 26.8 % Monocytes (%) (Auto) 7.1 % Eosinophils (%) (Auto) 3.5 % Basophils (%) (Auto) 1.1 % Neutrophils # (Auto) 4.5 TH/MM3 Lymphocytes # (Auto) 2.0 TH/MM3 Monocytes # (Auto) 0.5 TH/MM3 Eosinophils # (Auto) 0.3 TH/MM3 Basophils # (Auto) 0.1 TH/MM3 CBC Comment DIFF FINAL Differential Comment Blood Urea Nitrogen 8 MG/DL Creatinine 0.72 MG/DL Random Glucose 107 MG/DL Total Protein 6.1 GM/DL Albumin 2.7 GM/DL Calcium Level 8.1 MG/DL Alkaline Phosphatase 324 U/L Aspartate Amino Transf (AST/SGOT) 677 U/L Alanine Aminotransferase (ALT/SGPT) 1032 U/L Total Bilirubin 4.8 MG/DL Sodium Level 143 MEQ/L Potassium Level 4.0 MEQ/L Chloride Level 110 MEQ/L Carbon Dioxide Level 27.5 MEQ/L Anion Gap 6 MEQ/L Estimat Glomerular Filtration Rate 81 ML/MIN Date/Time Source Procedure Growth Status 08/06/17 03:25 Blood Peripheral Aerobic Blood Culture Pending Received 08/06/17 03:25 Blood Peripheral Anaerobic Blood Culture Pending Received Physical Examination HEENT: Pupils round and reactive to light; normocephalic; atraumatic; no jaundice. Throat is clear. NECK: Neck is supple, no JVD, no lymphadenopathy. CHEST: Chest is clear to auscultation and percussion. CARDIAC: Regular rate and rhythm with no murmur gallop or rubs. ABDOMEN: Soft, nondistended, right upper quadrant tenderness radiating pain into the back; no hepatosplenomegaly; bowel sounds are soft EXTREMITIES: No clubbing, cyanosis, or edema. SKIN: Normal; no rash; no jaundice. DATA MIGRATION LEAD: No focal deficits; alert and oriented times three., Speech has limited Albanian (Farzaneh Colon) Assessment and Plan Assessment: (1) Acute pancreatitis ICD Codes: K85.90 - Acute pancreatitis without necrosis or infection, unspecified Status: Acute (2) Abdominal pain ICD Codes: R10.9 - Abdominal pain Status: Acute Plan Transaminitis, Biliary obstruction, elevated amylase, lipase, CRP, bilirubin, LFTs Plan ERCP today, patient has already had a dose of IV Zosyn per record Plan Continue to monitor labs recheck CMP and CBC in a.m. Remain NPO IV fluids to half NS at 84 cc an hour, initial hypokalemia has been corrected ERCP today. Monitor for any acute bleed or hemorrhage Pain control per attending This case has been discussed with Dr. Khan, patient was seen and no was done on his behalf (Farzaneh Colon) Physician Comments Elevated liver function tests, jaundice, abdominal pain in the right upper quadrant, acute hepatitis most likely to be gallstone pancreatitis, abnormal imaging with dilated bile duct, recent cholecystectomy due to stones Patient seen and examined Agree with above Continue with current supportive care Monitor labs ERCP today (Reza Khan MD) Problem Qualifiers (1) Acute pancreatitis: Qualified Codes: K85.90 - Acute pancreatitis without necrosis or infection, unspecified Farzaneh Colon Aug 06, 2017 09:34 Reza Khan MD Aug 06, 2017 15:53
--- NOTE | 2017-08-06 09:42 | EKG ---
Date Performed: 08/06/2017 Time Performed: 00:37:28 PTAGE: 67 years EKG: SINUS BRADYCARDIA BORDERLINE ECG PREVIOUS TRACING : 07/19/2017 14.34 DOCTOR: Omero Bourne Interpretating Date/Time 08/06/2017 09:41:01
[2017-08-06] MEDS ORDERED: PIPERACIL-TAZO 4.5 GM PREMIX 100 ML IV SCH (10:00)
[2017-08-06] MEDS ORDERED: LIDOCAINE HCL 1% PF 5 ML SYRINGE OTHER ONE (12:00)
[2017-08-06] MEDS ORDERED: PROPOFOL 200 MG/20 ML AMP IV ONE (12:00)
[2017-08-06] MEDS ORDERED: SUCCINYLCHOLINE CHLORIDE 100 MG/5 ML SYRINGE IV PUSH ONE (12:00)
[2017-08-06] MEDS ORDERED: ROCURONIUM INJ 50 MG/5 ML SYRINGE IV PUSH ONE (12:00)
--- NOTE | 2017-08-06 15:44 | HHI.PR ---
cc: Rome Winters MD Subjective Subjective Notes Resting in bed; comes in to ED today with complaints of abdominal pain for about 2 days; c/o RIGHT shoulder pain Seen this AM in ED Objective Vitals/I&O Vital Signs Date Time Temp Pulse Resp B/P (MAP) Pulse Ox O2 Delivery O2 Flow Rate FiO2 08/06/17 13:11 08/06/17 13:00 68 15 98 Room Air 08/06/17 08:00 98.2 Labs Laboratory Tests Test 08/05/17 23:54 08/06/17 02:20 08/06/17 02:25 08/06/17 03:25 Blood Urea Nitrogen 9 Creatinine 0.74 Random Glucose 129 Total Protein 6.9 Albumin 3.3 Calcium Level 8.7 Magnesium Level 1.9 Alkaline Phosphatase 332 Aspartate Amino Transf (AST/SGOT) 1014 Alanine Aminotransferase (ALT/SGPT) 1269 Total Bilirubin 4.4 Sodium Level 139 Potassium Level 3.5 Chloride Level 106 Carbon Dioxide Level 27.9 Anion Gap 5 Estimat Glomerular Filtration Rate 78 C-Reactive Protein 0.57 Lipase 74272 Urine Color YELLOW Urine Turbidity CLEAR Urine pH 5.5 Urine Specific Nelson 1.020 Urine Protein NEG Urine Glucose (UA) NEG Urine Ketones NEG Urine Occult Blood TRACE Urine Nitrite NEG Urine Bilirubin SMALL Urine Urobilinogen LESS THAN 2.0 Urine Leukocyte Esterase LARGE Urine RBC 4 Urine WBC 1 Urine Squamous Epithelial Cells 1 Microscopic Urinalysis Comment CULT NOT INDICATED White Blood Count 10.1 Red Blood Count 3.73 Hemoglobin 10.4 Hematocrit 31.8 Mean Corpuscular Volume 85.1 Mean Corpuscular Hemoglobin 27.9 Mean Corpuscular Hemoglobin Concent 32.8 Red Cell Distribution Width 14.4 Platelet Count 254 Mean Platelet Volume 9.4 Neutrophils (%) (Auto) 77.8 Lymphocytes (%) (Auto) 13.1 Monocytes (%) (Auto) 6.1 Eosinophils (%) (Auto) 2.1 Basophils (%) (Auto) 0.9 Neutrophils # (Auto) 7.9 Lymphocytes # (Auto) 1.3 Monocytes # (Auto) 0.6 Eosinophils # (Auto) 0.2 Basophils # (Auto) 0.1 CBC Comment DIFF FINAL Differential Comment Lactic Acid Level 0.9 Test 08/06/17 06:49 White Blood Count 7.3 Red Blood Count 3.77 Hemoglobin 10.7 Hematocrit 31.9 Mean Corpuscular Volume 84.4 Mean Corpuscular Hemoglobin 28.5 Mean Corpuscular Hemoglobin Concent 33.7 Red Cell Distribution Width 14.4 Platelet Count 235 Mean Platelet Volume 9.4 Neutrophils (%) (Auto) 61.5 Lymphocytes (%) (Auto) 26.8 Monocytes (%) (Auto) 7.1 Eosinophils (%) (Auto) 3.5 Basophils (%) (Auto) 1.1 Neutrophils # (Auto) 4.5 Lymphocytes # (Auto) 2.0 Monocytes # (Auto) 0.5 Eosinophils # (Auto) 0.3 Basophils # (Auto) 0.1 CBC Comment DIFF FINAL Differential Comment Blood Urea Nitrogen 8 Creatinine 0.72 Random Glucose 107 Total Protein 6.1 Albumin 2.7 Calcium Level 8.1 Alkaline Phosphatase 324 Aspartate Amino Transf (AST/SGOT) 677 Alanine Aminotransferase (ALT/SGPT) 1032 Total Bilirubin 4.8 Sodium Level 143 Potassium Level 4.0 Chloride Level 110 Carbon Dioxide Level 27.5 Anion Gap 6 Estimat Glomerular Filtration Rate 81 Date/Time Source Procedure Growth Status 08/06/17 03:25 Blood Peripheral Aerobic Blood Culture Pending Received 08/06/17 03:25 Blood Peripheral Anaerobic Blood Culture Pending Received Cardiovascular: Regular Lungs: Clear Abdomen: Other (RUQ tenderness; lap sites are healing-- no signs of infection ) Extremities: No edema Narrative Exam Jaundice A/P Assessment and Plan 67 year old female s/p lap silvestre on 07/19; seen last week if office ---doing well; pain controlled; REYES removed; back with abdominal pain -CT abd/pelvis concerning for abscess vs biloma -WBC normal; no fevers -Elevated liver enzymes; lipase -GI consult---planning ERCP today to evaluate for stone causing obstruction -No General Surgery acute issues at this time but will continue to follow Attending Statement I saw patient post ERCP, she feels better. She is tolerating clears. There was no leak, no stones, sphincterotomy performed. Postop lap silvestre for gangrenous cholecystitis, outpatient labs from 08/01/17 normal, subsequently developed elevated LFTs and lipase, c/w passed CBD stone. No further surgical intervention required. I talked to son on the phone 08/07/17. The exam, history, and the medical decision-making described in the above note were completed with the assistance of the mid-level provider. I reviewed and agree with the findings presented. I attest that I had a [id number] encounter with the patient on the same day, and personally performed and documented my assessment and findings in the medical record. Emilee Hanna Aug 06, 2017 15:44 Rome Winters MD Aug 07, 2017 11:29
--- NOTE | 2017-08-06 15:56 | PD.PROCEDR ---
GI Procedure PROCEDURE PERFORMED ERCP with sphincterotomy and balloon extraction INDICATION FOR PROCEDURE Jaundice, elevated liver function tests, dilated bile duct rule out choledocholithiasis PROCEDURE: The procedure, risks and benefits were discussed with Ms. Wilson and informed consent was obtained. Anesthesia sedated her with Diprivan. She was placed in the left lateral decubitus position. ERCP: Patient was placed in a prone position. The Pentax videoscope was introduced through the oropharynx and advanced to the second portion of the duodenum where the ampula was identified. 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
[2017-08-06] MEDS ORDERED: DO NOT ADM ANY ANTICOAGULANT DRUGS PRN (15:57)
--- NOTE | 2017-08-06 16:15 | RADRPT ---
EXAM DATE/TIME: 08/06/2017 15:42 [facility] COMPARISON: CT ABDOMEN & PELVIS W CONTRAST, August 06, 2017, 1:57. INDICATIONS : ERCP to evaluate bile duct for blockages. FLUORO TIME: 1 min 44 secs. IMAGE COUNT: 2 CONTRAST: Instilled by Ordering Physician MEDICAL HISTORY : None. SURGICAL HISTORY : None. ENCOUNTER: Initial ACUITY: 1 day PAIN SCORE: Non-responsive. LOCATION: FINDINGS: An ERCP was performed by the ordering physician. 2 spot fluoroscopic images were obtained during ERCP examination. There is a catheter in the common d uct and extending into the intrahepatic bile ducts. Common bile duct is mildly dilated but no filling defects are identified. Intrahepatic bile ducts are normal in size. Cystic duct is not opacified. Th e common bile duct is dilated up to the most distal aspect opacified. CONCLUSION: Dilated common bile duct without any filling defects appreciated on the 2 images submitted. There is no intrahepatic bile duct dilatation. Yonis Rios MD on August 06, 2017 at 16:09 Board Certified Radiologist. This report was verified electronically.
[2017-08-06] MEDS ORDERED: IOHEXOL 300 MG/ML 50 ML BTL (for RAD DIAG) OTHER ONE (17:00)
[2017-08-06] MEDS: SODIUM CHLOR 0.45% 1000 ML INJ 1,000 ML IV SCH ×2 (17:33→21:55)
[2017-08-07] VITALS: BP 129/62; PULSE 67; RESP 17; TEMP 98.9; O2SAT 98
[2017-08-07 01:28] VITALS: PULSE 69
[2017-08-07] MEDS: NS + KCL 20 MEQ INJ 1,000 ML IV SCH (01:45)
[2017-08-07] MEDS: PIPERACIL-TAZO 3.375 GM PREMIX 50 ML IV SCH ×2 (02:30→09:28)
[2017-08-07 04:00] VITALS: BP 133/62; PULSE 69; RESP 17; TEMP 98.6; O2SAT 99
[2017-08-07] MEDS: SODIUM CHLOR 0.45% 1000 ML INJ 1,000 ML IV SCH (05:01)
[2017-08-07 07:54] VITALS: BP 145/69; PULSE 70; RESP 19; TEMP 97.8; O2SAT 98
[2017-08-07 08:44] LABS: BASOPHIL # 0.1 TH/MM3 (0-0.2); BASOPHIL % 1.4 % (0.0-2.0); EOSINOPHIL # 0.2 TH/MM3 (0-0.4); EOSINOPHIL % 2.8 % (0.0-4.0); HEMATOCRIT 35.1 % (35.0-46.0); HEMOGLOBIN 11.6 GM/DL (11.6-15.3); LYMPH % 22.4 % (9.0-44.0); LYMPHOCYTE # 1.6 TH/MM3 (1.0-4.8); MEAN CELL VOLUME 84.7 FL (80.0-100.0); MEAN CORPUSCULAR HEMOGLOBIN 27.9 PG (27.0-34.0); MEAN CORPUSCULAR HGB CONC 32.9 % (32.0-36.0); MEAN PLATELET VOLUME 9.2 FL (7.0-11.0); MONO % 5.4 % (0.0-8.0); MONOCYTE # 0.4 TH/MM3 (0-0.9); PLATELET COUNT 238 TH/MM3 (150-450); RED BLOOD COUNT 4.15 MIL/MM3 (4.00-5.30); RED CELL DISTRIBUTION WIDTH 14.3 % (11.6-17.2); WHITE BLOOD COUNT 7.3 TH/MM3 (4.0-11.0)
[2017-08-07 09:16] LABS: ALBUMIN 2.9 GM/DL (3.4-5.0); AST (GOT) 246 U/L (15-37); BICARBONATE 24.6 MEQ/L (21.0-32.0); BLOOD UREA NITROGEN 8 MG/DL (7-18); CALCIUM 8.7 MG/DL (8.5-10.1); CHLORIDE 105 MEQ/L (98-107); CREATININE 0.73 MG/DL (0.50-1.00); GLOMERULAR FILTRATION RATE 80 ML/MIN (>89); GLUCOSE,RANDOM 117 MG/DL (74-106); LIPASE 369 U/L (73-393); SODIUM (NA) 139 MEQ/L (136-145)
--- NOTE | 2017-08-07 09:16 | HHI.PR ---
cc: Rome Winters MD Subjective Subjective Notes Pain now resolved after ERCP yesterday Feels hungry Objective Vitals/I&O Vital Signs Date Time Temp Pulse Resp B/P (MAP) Pulse Ox O2 Delivery O2 Flow Rate FiO2 08/07/17 07:54 97.8 70 19 145/69 (94) 98 08/06/17 16:45 Nasal Cannula 2 Labs Laboratory Tests Test 08/07/17 08:24 White Blood Count 7.3 Red Blood Count 4.15 Hemoglobin 11.6 Hematocrit 35.1 Mean Corpuscular Volume 84.7 Mean Corpuscular Hemoglobin 27.9 Mean Corpuscular Hemoglobin Concent 32.9 Red Cell Distribution Width 14.3 Platelet Count 238 Mean Platelet Volume 9.2 Neutrophils (%) (Auto) 68.0 Lymphocytes (%) (Auto) 22.4 Monocytes (%) (Auto) 5.4 Eosinophils (%) (Auto) 2.8 Basophils (%) (Auto) 1.4 Neutrophils # (Auto) 5.0 Lymphocytes # (Auto) 1.6 Monocytes # (Auto) 0.4 Eosinophils # (Auto) 0.2 Basophils # (Auto) 0.1 CBC Comment DIFF FINAL Differential Comment Date/Time Source Procedure Growth Status 08/06/17 03:25 Blood Peripheral Aerobic Blood Culture Pending Received 08/06/17 03:25 Blood Peripheral Anaerobic Blood Culture Pending Received Cardiovascular: Regular Lungs: Clear Abdomen: Other (well healed lap sites from prior surgery; minimal tenderness to palpation ) Extremities: No edema A/P Assessment and Plan 67 year old female s/p lap silvestre on 07/19; seen last week if office ---doing well; pain controlled; REYES removed; back with abdominal pain -GI following---s/p ERCP -Awaiting today 's labs -Diet per GI -No General Surgery acute issues at this time; No clinical evidence of abscess post op Attending Statement improved. Spoke to patient and son-by phone. The exam, history, and the medical decision-making described in the above note were completed with the assistance of the mid-level provider. I reviewed and agree with the findings presented. I attest that I had a [id number] encounter with the patient on the same day, and personally performed and documented my assessment and findings in the medical record. Emilee Hanna Aug 07, 2017 09:16 Rome Winters MD Aug 07, 2017 11:30
[2017-08-07 09:17] LABS: ALT (GPT) 739 U/L (10-53)
[2017-08-07 09:19] LABS: ALKALINE PHOSPHATASE 344 U/L (45-117); TOTAL BILIRUBIN ADULT 2.8 MG/DL (0.2-1.0); TOTAL PROTEIN 6.6 GM/DL (6.4-8.2)
--- NOTE | 2017-08-07 09:26 | PD.PN.STU ---
Subjective Remarks Pt is a 67 y/o female w/ PMH of osteoarthritis on hospital day 2 who was admitted for a possible post-operative infection, pancreatitis, and hepatitis after a cholecystectomy on 07/19/18 . Labs on admission showed lipase level 97550, C reactive protein 0.57, AST 1014, ALT 1269, bilirubin 4.4 and [address]gb 10.4. [address] CT revealed possible abscess. She was started on Levaquin IV and Zosyn IV, fluids, and morphine. Today she complains of sore throat and a cough which she attributes to yesterdays ERCP. Reports pain has much improved since yesterday. Denies any fever,chills, CP, SOB, N/V/D Objective Vitals Vital Signs Date Time Temp Pulse Resp B/P (MAP) Pulse Ox O2 Delivery O2 Flow Rate FiO2 08/07/17 07:54 97.8 70 19 145/69 (94) 98 08/07/17 04:00 98.6 69 17 133/62 (85) 99 08/07/17 01:28 69 08/07/17 00:00 98.9 67 17 129/62 (84) 98 08/06/17 20:00 89.6 71 17 133/61 (85) 100 08/06/17 16:45 98.2 56 16 176/77 (110) 100 Nasal Cannula 2 08/06/17 16:30 56 16 181/76 (111) 100 Nasal Cannula 2 08/06/17 16:15 56 16 171/77 (108) 100 Nasal Cannula 2 08/06/17 15:59 98.0 73 16 127/66 (86) 99 Nasal Cannula 2 08/06/17 14:00 97.5 65 18 146/70 (95) 98 08/06/17 13:11 08/06/17 13:00 68 15 135/73 (93) 98 Room Air 08/06/17 11:00 62 18 130/64 (86) 99 Room Air I/O 08/06/17 08/06/17 08/06/17 08/07/17 08/07/17 08/07/17 07:00 15:00 23:00 07:00 15:00 23:00 Intake Total 1100 ml 50 ml 874 ml 1206 ml 120 ml Output Total 300 ml Balance 1100 ml 50 ml 574 ml 1206 ml 120 ml Intake Oral 240 ml 240 ml 120 ml IV Total 1100 ml 50 ml 134 ml 966 ml Other 500 ml Output Urine Total 300 ml # Voids 4 # Bowel Movements 0 Result Diagram: 08/07/17 0824 08/06/17 0649 Objective Remarks GENERAL: SKIN: Warm and dry. HEAD: Normocephalic. EYES: No scleral icterus. No injection or drainage. NECK: Supple, trachea midline. No JVD or lymphadenopathy. CARDIOVASCULAR: Regular rate and rhythm without murmurs, gallops, or rubs. RESPIRATORY: Breath sounds equal bilaterally. No accessory muscle use. GASTROINTESTINAL: Abdomen soft, nondistended, mild tenderness to palpation in RUQ MUSCULOSKELETAL: No cyanosis, or edema. BACK: Nontender without obvious deformity. No CVA tenderness. A/P Assessment and Plan Patient is a 67 y/o female with a h/o osteoarthritis who was admitted for a possible post-op infx, pancreatitis, and hepatitis, s/p cholecystectomy . Patient was found to have elevated lipase and liver enzymes. CT showed abdominal abscess. ERCP was performed yesterday. 1) Pancreatitis - Patient is clinically improving and denies any pain or N/V/D. Awaiting repeat labs this morning. Will continue fluids and manage pain 2) Abdominal Pain - Awaiting repeat labs this morning. ERCP revealed ampullary stricture, and GI reports patient possible passed a gallstone. Will provide supportive care per GI with fluids, pain management. Advance diet as tolerated. Joce Simental M3 Aug 07, 2017 09:26
[2017-08-07] MEDS: SODIUM CHLORIDE 0.9% FLUSH 10 ML FLUSH IV FLUSH SCH (09:28)
[2017-08-07] MEDS ORDERED: INFLUENZA VIRUS VACCINE (QUADRIVALENT) 0.5 ML SYR IM ONE (10:00)
[2017-08-07] MEDS ORDERED: PNEUMOCOCCAL POLYVALENT INJ 25 MCG/0.5 ML SYR IM ONE (10:00)
[2017-08-07 11:05] VITALS: PULSE 70
--- NOTE | 2017-08-08 07:57 | HHI.DS ---
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 Patient states the pain began today and is throbbing in her right upper quadrant, 8/10, worse with movement and palpation, improved with morphine, with associated chills. She denies any fever, nausea, vomiting or headaches. She states she has been unable to take any food or liquids in due to the pain. CBC/BMP: 08/07/17 0824 08/07/17 0824 Significant Findings Laboratory Tests Test 08/05/17 23:54 08/06/17 02:20 08/06/17 02:25 08/06/17 03:25 Random Glucose 129 MG/DL (74-106) Albumin 3.3 GM/DL (3.4-5.0) Alkaline Phosphatase 332 U/L (45-117) Aspartate Amino Transf (AST/SGOT) 1014 U/L (15-37) Alanine Aminotransferase (ALT/SGPT) 1269 U/L (10-53) Total Bilirubin 4.4 MG/DL (0.2-1.0) Estimat Glomerular Filtration Rate 78 ML/MIN (>89) C-Reactive Protein 0.57 MG/DL (0.00-0.30) Lipase 97580 U/L (73-393) Urine Occult Blood TRACE (NEG) Urine Bilirubin SMALL (NEG) Urine Leukocyte Esterase LARGE (NEG) Urine RBC 4 /hpf (0-3) Red Blood Count 3.73 MIL/MM3 (4.00-5.30) Hemoglobin 10.4 GM/DL (11.6-15.3) Hematocrit 31.8 % (35.0-46.0) Neutrophils (%) (Auto) 77.8 % (16.0-70.0) Neutrophils # (Auto) 7.9 TH/MM3 (1.8-7.7) Test 08/06/17 06:49 08/07/17 08:24 Red Blood Count 3.77 MIL/MM3 (4.00-5.30) Hemoglobin 10.7 GM/DL (11.6-15.3) Hematocrit 31.9 % (35.0-46.0) Random Glucose 107 MG/DL (74-106) 117 MG/DL (74-106) Total Protein 6.1 GM/DL (6.4-8.2) Albumin 2.7 GM/DL (3.4-5.0) 2.9 GM/DL (3.4-5.0) Calcium Level 8.1 MG/DL (8.5-10.1) Alkaline Phosphatase 324 U/L (45-117) 344 U/L (45-117) Aspartate Amino Transf (AST/SGOT) 677 U/L (15-37) 246 U/L (15-37) Alanine Aminotransferase (ALT/SGPT) 1032 U/L (10-53) 739 U/L (10-53) Total Bilirubin 4.8 MG/DL (0.2-1.0) 2.8 MG/DL (0.2-1.0) Chloride Level 110 MEQ/L (98-107) Estimat Glomerular Filtration Rate 81 ML/MIN (>89) 80 ML/MIN (>89) Imaging Last Impressions Chest X-Ray 08/06/179 Signed Impressions: Service Date/Time: Sunday, August 06, 2017 00:22 - CONCLUSION: No acute disease. Yonis Shaffer MD Abdomen/Pelvis CT 08/06/17 001 Signed Impressions: Service Date/Time: Sunday, August 06, 2017 01:57 - CONCLUSION: 1. Intra and extra hepatic biliary duct dilatation with small foci of air within the gallbladder fossa. The patient is status post cholecystectomy in late June. Fluid and air in this region is concerning for abscess. A biloma could be considered. 2. Calcified leiomyoma the uterus. 3. Post operative change in lumbar spine. 4. Areas of sclerosis of the left ilium. These are nonspecific. These could be further evaluated with a bone scan at a later date to determine if these are metabolically active or not. Yonis Shaffer MD GI Procedure 08/06/17 0000 Signed Impressions: Service Date/Time: Sunday, August 06, 2017 15:42 - CONCLUSION: Dilated common bile duct without any filling defects appreciated on the 2 images submitted. There is no intrahepatic bile duct dilatation. Yonis Rios MD PE at Discharge GENERAL: AOX3, NAD. SKIN: Warm and dry. HEAD: Normocephalic. EYES: No scleral icterus. No injection or drainage. NECK: Supple, trachea midline. No JVD or lymphadenopathy. CARDIOVASCULAR: Regular rate and rhythm without murmurs, gallops, or rubs. RESPIRATORY: Breath sounds equal bilaterally. No accessory muscle use. GASTROINTESTINAL: Abdomen soft, non-tender except for mild RUQ tenderness, nondistended. MUSCULOSKELETAL: No cyanosis, or edema. BACK: Nontender without obvious deformity. No CVA tenderness. Pt update on day of discharge Patient is currently doing well. Her symptoms have largely resolved. She is tolerating diet well. No fever, chills. Wants to go home. Hospital Course 67-year-old female with a history of osteoarthritis and recent cholecystectomy on 07/19/17 presented to the ED with complaints of abdominal pain. [place] [id number] on admission. She also had LFTs elevation. GI Was consulted and patient underwent ERCP. Patient was given supportive care for pancreatitis. After ERCP procedure, patient reported significant improvement of her symptoms. GI indicated that patient may have passed a stone. Patient tolerated diet well. Her labs also indicated LFTs trending down and much reduction of lipase. Patient was subsequently discharged. Pt Condition on Discharge: Good Discharge Disposition: Discharge Home Discharge Time: <= 30 minutes Discharge Instructions DIET: Follow Instructions for: As Tolerated, No Restrictions Additional Diet Instructions: Avoid greasy, rich food for the next week or so. Gradually advance diet. Activities you can perform: Regular-No Restrictions Follow up Referrals: PCP Follow-up - 1 Week Continued Medications: Hydrocodone-Acetaminophen ([facility]) 5 Mg-325 Mg Tab 1 TAB PO Q4H PRN for PAIN, #20 TAB 0 Refills James Meneses DO Aug 08, 2017 07:57
== END 2017-08-07 12:03 | disposition home or self-care (01) | DRG 440 ==
LOC: NEPE 23:14 → NEDA 08-06 03:06 → N07A 08-06 13:18
PROVIDERS: ADMIT Hospitalist; ATTEND Hospitalist
PROC: 0F798ZZ Dilation of Common Bile Duct, Via Natural or Artificial Opening Endoscopic (ICD-10-PCS; principal; 2017-08-06 15:08)
DX: K85.10 Biliary acute pancreatitis without necrosis or infection (principal); K80.50 Calculus of bile duct without cholangitis or cholecystitis without obstruction; R00.1 Bradycardia, unspecified; Z90.49 Acquired absence of other specified parts of digestive tract; M19.90 Unspecified osteoarthritis, unspecified site; M81.0 Age-related osteoporosis without current pathological fracture; R74.0 Nonspecific elevation of levels of transaminase and lactic acid dehydrogenase [LDH]; D64.9 Anemia, unspecified; Z23 Encounter for immunization
CPT/HCPCS: 71045; 74177; 74330; 80053; 81001; 83605; 83690; 83735; 85025; 86140; 87040; 90686; 90732; 93005; 96361; 96365; 96375; C1769; J0330; J2270; J2405; J2543; J3480; J7030; Q2038; Q9967